=== PATIENT | female | born 1965 | race Caucasian/White ===

== ENCOUNTER 2016-05-14 14:39 | Emergency (ER) | payer OTHER ==
--- NOTE | 2016-05-14 14:52 | ER Document Report ---
ED Medical Screen (RME) - General Stated Complaint: VOMITING,DIARRHEA Notes: Nausea vomiting diarrhea for 24 hours also has postural vertigo I greeted and performed a rapid initial assessment of this patient. Comprehensive ED assessment and evaluation of the patient, analysis of test results and completion of the medical decision making process will be conducted by additional ED providers. - Related Data Allergies/Adverse Reactions: SAGAR Inhibitors [Sagar Inhibitors] Allergy (Unknown, Verified 02/12/12 19:44) Pyzxdxe-Fmw-Yzn Reductase Inhibitor Allergy (Unknown, Verified 02/12/12 19:44) Past Medical History - Past Medical History Cardiac Medical History: Reports: Hx Hypercholesterolemia - no longer being treated, Hx Hypertension - no longer being treated Pulmonary Medical History: Denies: Hx Tuberculosis Endocrine Medical History: Reports: Hx Diabetes Mellitus Type 1 Psychiatric Medical History: Reports: Hx Depression Past Surgical History: Denies: Hx Pacemaker - Immunizations Hx Diphtheria, Pertussis, Tetanus Vaccination: Yes
[2016-05-14] MEDS ORDERED: NORMAL SALINE 1000 ML 2,000 ML IV PRN (14:53)
[2016-05-14] MEDS ORDERED: METOCLOPRAMIDE HCL INJ/PF 10 MG/2 ML SDV IV ONE (15:24)
--- NOTE | 2016-05-14 15:24 | ER Document Report ---
ED GI/ - General Chief Complaint: Nausea/Vomiting/Diarrhea Stated Complaint: VOMITING,DIARRHEA Notes: The patient is a 50-year-old female, past medical history IDDM, hypertension, high cholesterol, presents with 1 day of nausea, vomiting and diarrhea. Her Accu-Chek at home was in the high 300s and she took her sliding scale insulin. A repeat Accu-Chek was 200s. She is having polyuria. She is also having intermittent vertiginous symptoms, feeling like the room is spinning, that started around the same time as her nausea and vomiting. She denies abdominal pain, headache, blurry vision, neck stiffness, focal weakness, ataxia, chest pain, shortness of breath, fevers, hematemesis or hematochezia. TRAVEL OUTSIDE OF THE [place] IN LAST 30 DAYS: No - Related Data Allergies/Adverse Reactions: SAGAR Inhibitors [Sagar Inhibitors] Allergy (Unknown, Verified 05/14/16 14:52) Raewvcm-Nzc-Ehr Reductase Inhibitor Allergy (Unknown, Verified 05/14/16 14:52) Past Medical History - General Information source: Patient - Social History Smoking Status: Current Every Day Smoker Chew tobacco use (# tins/day): No Frequency of alcohol use: None Drug Abuse: None Family History: Reviewed & Not Pertinent Patient has suicidal ideation: No Patient has homicidal ideation: No - Past Medical History Cardiac Medical History: Reports: Hx Hypercholesterolemia - no longer being treated, Hx Hypertension - no longer being treated Pulmonary Medical History: Denies: Hx Tuberculosis Endocrine Medical History: Reports: Hx Diabetes Mellitus Type 1 Renal/ Medical History: Denies: Hx Peritoneal Dialysis Psychiatric Medical History: Reports: Hx Depression Past Surgical History: Denies: Hx Pacemaker - Immunizations Hx Diphtheria, Pertussis, Tetanus Vaccination: Yes Review of Systems - Review of Systems Notes: REVIEW OF SYSTEMS: CONSTITUTIONAL: -fevers, -chills EENT: -eye pain, -difficulty swallowing, -nasal congestion CARDIOVASCULAR:-chest pain, -syncope. RESPIRATORY: -cough, -SOB GASTROINTESTINAL: -abdominal pain, +nausea, +vomiting, +diarrhea GENITOURINARY: -dysuria, -hematuria MUSCULOSKELETAL: -back pain, -neck pain SKIN: -rash or skin lesions. HEMATOLOGIC: -easy bruising or bleeding. LYMPHATIC: -swollen, enlarged glands. NEUROLOGICAL: -altered mental status or loss of consciousness, -headache, + vertigo PSYCHIATRIC: -anxiety, -depression. ALL OTHER SYSTEMS REVIEWED AND NEGATIVE. Physical Exam - Vital signs Vitals: Resp Pulse Ox 15 98 05/14/16 15:41 05/14/16 15:41 Temp 98.0, Pulse 133, RR 26, Pulse Ox98%, BP 91/62 - Notes Notes: PHYSICAL EXAMINATION: GENERAL: Well-appearing, well-nourished and in no acute distress. HEAD: Atraumatic, normocephalic. EYES: Pupils equal round and reactive to light, extraocular movements intact, sclera anicteric, conjunctiva are normal. ENT: nares patent, oropharynx clear without exudates. Dry mucous membranes. NECK: Normal range of motion, supple without lymphadenopathy LUNGS: Tachypnea. Breath sounds clear to auscultation bilaterally and equal. No wheezes rales or rhonchi. HEART: Tachycardic. Normal rhythm. ABDOMEN: Soft, nontender, normoactive bowel sounds. No guarding, no rebound. No masses appreciated. EXTREMITIES: Normal range of motion, no pitting or edema. No cyanosis. NEUROLOGICAL: Cranial nerves grossly intact. Normal speech, normal gait. Normal sensory, motor, and reflex exams. No posterior cerebellar signs. PSYCH: Normal mood, normal affect. SKIN: Warm, Dry, normal turgor, no rashes or lesions noted. Course - Re-evaluation Re-evalutation: Patient's vertiginous symptoms resolved after fluid. No posterior cerebellar signs to suggest basilar insufficiency. Patient initially had elevated anion gap within normal blood sugar. She is not acidotic on VBG. Does not meet criteria for DKA. Patient is tolerating fluids. Abdominal exam is completely soft and she has no nausea. KUB shows possible ileus and radiologist said cannot rule out small bowel obstruction, but patient is not acting clinically like an ileus or small bowel obstruction at this time. Slight leukocytosis most likely from vomiting. No evidence of infection at this time. Offered patient admission, but she would like to go home because she is feeling much better. Repeat BMP shows that the anion gap has resolved. Will discharge home with instructions to stay hydrated and return immediately to the ER if she has any worsening symptoms. - Vital Signs Vital signs: Temp Pulse Resp BP Pulse Ox 101 H 16 101/74 99 05/14/16 20:29 05/14/16 20:29 05/14/16 20:29 05/14/16 20:29 - Laboratory Result Diagrams: 05/14/16 14:55 05/14/16 19:31 Laboratory results interpreted by me: 05/14/16 05/14/16 05/14/16 14:53 14:55 14:55 WBC 11.3 H RBC 5.65 H Hgb 16.5 H Hct 51.5 H Seg Neuts % (Manual) 85 H Lymphocytes % (Manual) 2 L Abs Neuts (Manual) 9.9 H Abs Lymphs (Manual) 0.2 L Anion Gap 21 H BUN 23 H Creatinine 1.28 H Est GFR ( Amer) 54 L Est GFR (Non-Af Amer) 45 L Glucose 138 H POC Glucose 151 H Calcium AST 47 H ALT 66 H Lipase < 10.0 L Urine Protein Urine Glucose (UA) Urine Ketones Urine Blood 05/14/16 05/14/16 05/14/16 16:45 18:58 19:31 WBC RBC Hgb Hct Seg Neuts % (Manual) Lymphocytes % (Manual) Abs Neuts (Manual) Abs Lymphs (Manual) Anion Gap BUN 25 H Creatinine Est GFR ( Amer) Est GFR (Non-Af Amer) Glucose 111 H POC Glucose 115 H Calcium 8.3 L AST ALT Lipase Urine Protein 30 H Urine Glucose (UA) >=500 H Urine Ketones 20 H Urine Blood LARGE H - Diagnostic Test Radiology reviewed: Image reviewed, Reports reviewed - EKG Interpretation by Me EKG shows normal: Sinus rhythm, [place], Intervals, QRS Complexes, ST-T Waves Rate: Tachycardia - 133 Discharge - Discharge Clinical Impression: Hyperglycemia Nausea & vomiting Qualifiers: Vomiting type: unspecified Vomiting Intractability: non-intractable Qualified Code(s): R11.2 - Nausea with vomiting, unspecified Disposition: HOME, SELF-CARE Additional Instructions: HYPERGLYCEMIA (HIGH BLOOD SUGAR): You have an abnormally high blood sugar. Not all high blood sugar requires long-term treatment. High blood sugar can be due to medications, , or the stress of illness. (These cases are "borderline diabetes.") If the doctor feels your high blood sugar might resolve with time, you may not require treatment now. It's very important that you follow through, to see if the blood sugar returns to normal levels. Uncontrolled high blood sugar leads to early heart disease, strokes, nerve damage, eye damage, and kidney damage. Call the physician if there is faintness, excess sleepiness, or very rapid breathing. DIABETES: You have an abnormally high blood sugar, suspicious for diabetes. Not all high blood sugar requires long-term treatment. High blood sugar can be due to medications, , or the stress of illness. (These cases are "borderline diabetes.") If the doctor feels your high blood sugar might get better with time, you may not require treatment now. It's very important that you follow through. Uncontrolled high blood sugar leads to early heart disease, strokes, nerve damage, eye damage, and kidney damage. All diabetics should follow a diet designed to control the blood sugar. Overweight diabetics should exercise regularly and lose weight. If this is not sufficient to control the blood sugar, pills or insulin shots are necessary. Younger people who develop diabetes almost always require insulin daily. Home testing of blood sugars or urine sugar is required. Diabetic teaching is available to help you figure insulin doses and monitor the blood sugar. Call the physician if there is faintness, excess sleepiness, or very rapid breathing. If hypoglycemia (LOW blood sugar) develops, symptoms are shakiness, weakness, sweating, and confusion. In this case, you should eat or drink something with sugar at once. INSULIN: Insulin is a natural hormone that lowers blood sugar. Normal blood sugar prevents complications of diabetes. For most diabetics, insulin is the best way to treat the illness. Be sure you know how to measure the insulin correctly. Insulin is measured in "units." There are three types of insulin: N (NPH or long acting), R (regular or short acting), and L (Lente or very long acting). Be sure you are using the right amount of each type. Insulin must be injected into the fat. You can use the abdomen, upper arms , and thighs. Select a different injection site every time. Wipe the site with alcohol before injecting. When first starting insulin, some adjusting of the insulin dose is necessary. Keep a record of each insulin dose and time of injection, and of the blood sugar and the time you test it. Sometimes insulin can make the blood sugar too low. If you become dizzy, sweaty, shaky, or confused, you may be having a hypoglycemic episode. Immediately use juice or some other sweet food. Call the doctor if the symptoms don't go away. FOLLOW-UP CARE: If you have been referred to a physician for follow-up care, call the physician s office for an appointment as you were instructed or within the next two days. If you experience worsening or a significant change in your symptoms, notify the physician immediately or return to the Emergency Department at any time for re-evaluation. VOMITING: Vomiting (or nausea without vomiting) can be caused by many other different problems. It can mean that something's wrong with the stomach, such as ulcers or inflammation or the intestinal tract, such as appendicitis. But it can also be a symptom of a problem that has nothing to do with the stomach or intestines. Vomiting is common with severe headaches, earaches, tonsillitis, and kidney infections, etc. We see it with pneumonia or heart attacks. Drugs can cause nausea and vomiting. Many abdominal problems cause vomiting; for example, gallstones, kidney stones, pancreatitis, and intestinal obstruction ( blocked bowels). In most cases, curing the vomiting depends on fixing the problem that caused it. For temporary relief, we may use an anti-nausea medicine. For home use, we can prescribe suppositories, chewable pills, pills that dissolve in the mouth, or liquid anti-nausea drugs. If the vomiting seems to be caused by a problem in the stomach, acid-suppressing drugs may be prescribed as well. It's important to avoid dehydration. Sip small amounts of clear liquids ( soft drinks, tea, broth, etc) . Try to take fluids frequently even if you are vomiting to prevent dehydration. Take increasing amounts of fluid and when liquids are being consumed successfully, advance to small amounts of bland food (toast, soups, mashed potatoes, etc.) until you are able to resume a regular diet. Avoid aspirin, tobacco, and alcohol. If the vomiting worsens, if the problem that's making you vomit worsens, or if there's evidence of bleeding in the stomach (such as black, tarry stool, or bloody or black vomit), you should return immediately. Also, return if abdominal pain worsens or becomes localized to one area or you develop high fever. Call your doctor if you aren't improved in 24 hours. DIARRHEA, NON-SPECIFIC: Diarrhea means frequent, watery stools. There are many causes. Any problem that keeps the intestinal tract from absorbing water from the stool can lead to diarrhea. A sudden new diarrhea problem is usually caused by a virus, food sensitivity, toxic bacteria, or drugs. In this case, we expect the problem to go away soon. Testing is done only if you seem seriously ill from the diarrhea. If you have chronic diarrhea, or diarrhea that keeps coming back, we need to find out why. Chronic diarrhea can be due to inflammation of the bowels such as Crohn's disease or ulcerative colitis, food sensitivity such as intolerance to lactose or wheat protein, irritable bowel syndrome, and other problems. If your diarrhea is a significant problem but it's not clear why you have it, we' ll refer you to a specialist for further testing. During an episode of diarrhea, drink small amounts (two to six ounces) of clear liquids (soft drinks, sport drinks, herb teas, broth, etc). Take fluids frequently to prevent dehydration. It's usually not a problem to take mild anti- diarrhea medication such as Kaopectate or Pepto-Bismol. As the diarrhea eases, advance to small amounts of bland food (mashed potato, toast) for 24 hours. Call the physician if blood appears in your vomit or stool, if vomiting lasts longer than 24 hours, if the abdominal pain worsens or becomes localized to one area, if you develop high fever, or if you become lightheaded and weak. VIRAL SYNDROME: The physician has diagnosed a viral infection. Viruses not only cause "colds," but can cause many different symptoms including generalized aching, fever, headache, cough, diarrhea, nausea, vomiting, and fatigue. The treatment, for the most part, is simply relief of symptoms. This means that antibiotics are usually not given. Rest, fluids, pain medications and, occasionally, medication for the specific symptoms that are most bothersome will be prescribed. Use good handwashing to avoid passing the virus to others. Shared toys should be cleaned with disinfectant. Clean the toilets, sinks, and counter surfaces in bathrooms. Launder clothing in hot water. Contact the physician if you develop any new or unusual symptoms such as severe headache, stiff neck, high fever, chest pain, productive cough, or shortness of breath. You should be rechecked if you don't see marked improvement within seven to 10 days. INTRAVENOUS (I V) FLUIDS: As part of your care today, you received intravenous (IV) fluids. IV fluids are administered to patients who are dehydrated or to those who have certain chemical (electrolyte) abnormalities that need correcting. ANTINAUSEA MEDICATION: You have been given a medication to suppress nausea and vomiting. This type of medication can be given as a shot, pill, or suppository. It will usually last for many hours. Pills and shots usually last six to eight hours. For the typical illness, only one or two doses of the medication may be necessary. Mild lightheadedness may occur. This type of medicine can cause drowsiness. Do not drive or operate dangerous machinery while under its influence. Do not mix with alcohol. See your doctor at once if you have muscle spasms or tightness, or uncontrollable motions (particularly of the neck, mouth, or jaw). Persistent vomiting or severe lightheadedness should also be evaluated by the physician. REGLAN (METOCLOPRAMIDE): Reglan has been prescribed. This medicine affects the stomach and intestines. It can be used to treat nausea and vomiting, to prevent reflux of stomach acid up into the esophagus, or to increase the contractions of the stomach and intestines. It is often prescribed for esophagitis, and for paralysis of the stomach in diabetics. Reglan can cause either mild restlessness or drowsiness. You should contact the doctor at once if you become extremely restless, anxious, or cannot sleep, or if you develop uncontrollable motions of the lips, tongue, or jaw. Do not take alcohol with this medicine. Do not drive or operate machinery until you have been taking this medicine long enough to know how it affects you. Call the doctor if you develop abdominal pains, lightheadedness, black stool, or blood in the stool or vomitus. FOLLOW-UP CARE: If you have been referred to a physician for follow-up care, call the physician s office for an appointment as you were instructed or within the next two days. If you experience worsening or a significant change in your symptoms, notify the physician immediately or return to the Emergency Department at any time for re-evaluation.
[2016-05-14 15:27] LABS: HEMATOCRIT 51.5 % (36.0-47.0); HEMOGLOBIN 16.5 g/dL (12.0-15.5); MEAN CORPUSCULAR HEMOGLOBIN 29.2 pg (27.0-33.4); MEAN CORPUSCULAR HGB CONC 32.1 g/dL (32.0-36.0); MEAN CORPUSCULAR VOLUME 91 fl (80-97); RED BLOOD COUNT 5.65 10^6/uL (3.72-5.28); RED CELL DISTRIBUTION WIDTH 13.5 % (11.5-14.0); WHITE BLOOD COUNT 11.3 10^3/uL (4.0-10.5)
[2016-05-14] MEDS: NORMAL SALINE 1000 ML 1,000 ML IV PRN ×2 (15:38→16:35)
[2016-05-14 15:46] LABS: BAND NEUTROPHILS % (MANUAL) 3 % (3-5); BASOPHILS % (MANUAL) 0 % (0-2); EOSINOPHILS % (MANUAL) 0 % (0-6); LYMPHOCYTES % (MANUAL) 2 % (13-45); TOTAL CELLS COUNTED 100
[2016-05-14 15:48] LABS: ALANINE AMINOTRANSFERASE 66 U/L (9-52); ALBUMIN 4.2 g/dL (3.5-5.0); ALKALINE PHOSPHATASE 53 U/L (38-126); ASPARTATE AMINO TRANSFERASE 47 U/L (14-36); BILIRUBIN,TOTAL 0.4 mg/dL (0.2-1.3); BLOOD UREA NITROGEN 23 mg/dL (7-20); CARBON DIOXIDE 23 mmol/L (22-30); CREATININE RESULT 1.28 mg/dL (0.52-1.25); GLUCOSE 138 mg/dL (75-110); LIPASE < 10.0 U/L (23-300); RBC MORPHOLOGY COMMENT NORMO-CYTIC/CHROMIC; TOTAL PROTEIN 7.2 g/dL (6.3-8.2); TOXIC GRANULATION SLIGHT; TOXIC VACUOLATION PRESENT
[2016-05-14 15:55] LABS: CHLORIDE 98 mmol/L (98-107); POTASSIUM 4.2 mmol/L (3.6-5.0); SODIUM 141.9 mmol/L (137-145)
[2016-05-14 16:00] LABS: ANION GAP 21 (5-19)
[2016-05-14] MEDS ORDERED: DEXTROSE 5%-1/2 NORMAL SALINE 1,000 ML IV ONE (16:19)
[2016-05-14 16:48] LABS: VENOUS BLOOD BASE EXCESS -2.9 mmol/L; VENOUS BLOOD PH 7.31 (7.30-7.42)
[2016-05-14 17:12] LABS: APPEARANCE,URINE SLIGHTLY-CLOUDY; BILIRUBIN,URINE NEGATIVE (NEGATIVE); GLUCOSE, URINE >=500 mg/dL (NEGATIVE); KETONES,URINE 20 mg/dL (NEGATIVE); LEUKOCYTE ESTERASE,URINE NEGATIVE (NEGATIVE); NITRITE,URINE NEGATIVE (NEGATIVE); PROTEIN,URINE 30 mg/dL (NEGATIVE); URINE SPECIFIC GRAVITY 1.032; UROBILINOGEN,URINE NEGATIVE mg/dL (<2.0)
--- NOTE | 2016-05-14 18:35 | EKG REPORT ---
SEVERITY:- OTHERWISE NORMAL ECG - SINUS TACHYCARDIA : Confirmed by: Shamika Dominique MD 14-May-2016 18:35:01
[2016-05-14] MEDS ORDERED: NORMAL SALINE 1000 ML 1,000 ML IV ONE (19:15)
[2016-05-14 20:02] LABS: ANION GAP 12 (5-19); BLOOD UREA NITROGEN 25 mg/dL (7-20); CALCIUM 8.3 mg/dL (8.4-10.2); CARBON DIOXIDE 26 mmol/L (22-30); CHLORIDE 101 mmol/L (98-107); CREATININE RESULT 0.91 mg/dL (0.52-1.25); GLUCOSE 111 mg/dL (75-110); POTASSIUM 3.9 mmol/L (3.6-5.0); SODIUM 138.8 mmol/L (137-145)
[2016-05-15 05:12] VITALS: BP 100/65
== END 2016-05-14 21:12 | disposition home or self-care (01) ==
LOC: ER 14:39
DX: E11.65 Type 2 diabetes mellitus with hyperglycemia (principal); R11.2 Nausea with vomiting, unspecified; R19.7 Diarrhea, unspecified; Z79.4 Long term (current) use of insulin; I10 Essential (primary) hypertension; E78.00 Pure hypercholesterolemia, unspecified; F17.210 Nicotine dependence, cigarettes, uncomplicated
CPT/HCPCS: 93005; 99284; 96361; 96374; 36415; 82010; 82962; 83690; 85025; 80048; 80053; 81001; 84484; 82803; 74022; 93010; J2765; J7030

== ENCOUNTER → 2016-12-05 | Outpatient (CLI) | payer OTHER ==
--- NOTE | 2016-12-05 14:31 | RADIOLOGY REPORT (SQ) ---
EXAM DESCRIPTION: CT ABD/PELVIS WITH IV ORAL COMPLETED DATE/TIME: 12/05/2016 1:13 pm REASON FOR STUDY: ABN WEIGHT LOSS (R63.4), ABD PAIN (R10.9) R10.9 UNSPECIFIED ABDOMINAL PAIN R63.4 ABNORMAL WEIGHT LOSS COMPARISON: Abdominal films 05/14/2016 TECHNIQUE: CT scan of the abdomen and pelvis performed using helical scanning technique with dynamic intravenous contrast injection. No oral contrast. Images reviewed with lung, soft tissue, and bone windows. Reconstructed coronal and sagittal MPR images reviewed. Delayed images for evaluation of the urinary system also acquired. All images stored on PACS. All CT scanners at this facility use dose modulation, iterative reconstruction, and/or weight based d osing when appropriate to reduce radiation dose to as low as reasonably achievable (ALARA). [facility]: Dose Right [facility]: CareDose [facility]: Dose Right [facility]: Teradose 4D [facility]: SIPphone CONTRAST TYPE AND DOSE: contrast/concentration: Isovue 370.00 mg/ml; Total Contrast Delivered: 64.0 ml; Total Saline Delivered: 64.0 ml RENAL FUNCTION: Creatinine 1.5 RADIATION DOSE: Up-to-date CT equipment and radiation dose reduction techniques were employed. CTDIv ol: 3.5 - 4.0 mGy. DLP: 386 mGy-cm.. LIMITATIONS: None. FINDINGS: LOWER CHEST: No significant findings. No nodules or infiltrates. LIVER: Normal size. No masses. No dilated ducts. SPLEEN: Normal size. No focal lesions. PANCREAS: No masses. No significant calcifications. No adjacent inflammation or peripancreatic fluid collections. Pancreatic duct not dilated. GALLBLADDER: No identified stones by CT criteria. No inflammatory changes to suggest cholecystitis. ADRENAL GLANDS: No significant masses or asymmetry. RIGHT KIDNEY AND URETER: No solid masses. No significant calcifications. No hydronephrosis or hyd roureter. LEFT KIDNEY AND URETER: No solid masses. No significant calcifications. No hydronephrosis or hydr oureter. AORTA AND VESSELS: No aneurysm. No dissection. Renal arteries, SMA, celiac without stenosis. RETROPERITONEUM: No retroperitoneal adenopathy, hemorrhage or masses. BOWEL AND PERITONEAL CAVITY: No masses or inflammatory changes. No free fluid or peritoneal masses. Large amount of stool throughout the colon. Few colonic diverticuli without CT signs of acute divert iculitis APPENDIX: Normal. PELVIS: No mass. No free fluid. Normal bladder. Normal size female pelvic organs. Incidental 2 cm left ovarian cyst of doubtful significance. ABDOMINAL WALL: No masses. No hernias. BONES: No significant or acute findings. OTHER: No other significant finding. IMPRESSION: Large amount of stool throughout the colon. Otherwise unremarkable study TECHNICAL DOCUMENTATION: JOB ID: [id number] Quality ID # [id number]: Final reports with documentation of one or more dose reduction techniques (e.g., Au tomated exposure control, adjustment of the mA and/or kV according to patient size, use of iterative reconstruction technique) 2010 [employer]- All Rights Reserved
== END ==
LOC: RAD 12:28
PROVIDERS: ATTEND Internal Medicine Gastroenterology
DX: R10.9 Unspecified abdominal pain (principal); R63.4 Abnormal weight loss
CPT/HCPCS: 74177; 82565

== ENCOUNTER 2018-04-08 17:46 | Inpatient (IN) | payer OTHER ==
--- NOTE | 2018-04-08 18:07 | ER Document Report ---
ED Medical Screen (RME) - General Chief Complaint: Headache Stated Complaint: VOMITING Time Seen by Provider: 04/08/18 18:01 TRAVEL OUTSIDE OF THE [place] IN LAST 30 DAYS: No - HPI Notes: 04/08/18 18:06 Type I diabetic elevated blood sugars nausea vomiting headache history of DKA in the past took 20 units of insulin prior to arrival - Related Data Allergies/Adverse Reactions: SAGAR Inhibitors [Sagar Inhibitors] Allergy (Unknown, Verified 04/08/18 17:47) Hwonugc-Cfd-Utl Reductase Inhibitor Allergy (Unknown, Verified 04/08/18 17:47) Past Medical History - Past Medical History Cardiac Medical History: Reports: Hx Hypercholesterolemia - no longer being treated, Hx Hypertension - no longer being treated Pulmonary Medical History: Denies: Hx Tuberculosis Endocrine Medical History: Reports: Hx Diabetes Mellitus Type 1 Renal/ Medical History: Denies: Hx Peritoneal Dialysis Psychiatric Medical History: Reports: Hx Depression Past Surgical History: Denies: Hx Pacemaker - Immunizations Hx Diphtheria, Pertussis, Tetanus Vaccination: Yes Review of Systems - Review of Systems Constitutional: Other Physical Exam - Vital signs Vitals: Temp Pulse Resp 98.4 F 140 H 24 H 04/08/18 17:49 04/08/18 17:49 04/08/18 17:49 - Respiratory Respiratory status: No respiratory distress Chest status: Nontender Breath sounds: Normal Chest palpation: Normal - Cardiovascular Rhythm: Regular Heart sounds: Normal auscultation - Abdominal Inspection: Normal Distension: No distension Course - Vital Signs Vital signs: Temp Pulse Resp BP Pulse Ox 98.4 F 140 H 24 H 04/08/18 17:49 04/08/18 17:49 04/08/18 17:49 Doctor's Discharge - Discharge Referrals: MELCHOR ACOSTA MD [Primary Care Provider] - Follow up as needed
--- NOTE | 2018-04-08 18:25 | RADIOLOGY REPORT (SQ) ---
EXAM DESCRIPTION: CHEST SINGLE VIEW COMPLETED DATE/TIME: 04/08/2018 6:15 pm REASON FOR STUDY: tachy n/v COMPARISON: None. EXAM PARAMETERS: NUMBER OF VIEWS: One view. TECHNIQUE: Single frontal radiographic view of the chest acquired. RADIATION DOSE: NA LIMITATIONS: None. FINDINGS: LUNGS AND PLEURA: No opacities, masses or pneumothorax. No pleural effusion. MEDIASTINUM AND HILAR STRUCTURES: No masses. Contour normal. HEART AND VASCULAR STRUCTURES: Heart normal in size. Normal vasculature. BONES: No acute findings. HARDWARE: None in the chest. OTHER: No other significant finding. IMPRESSION: NO ACUTE RADIOGRAPHIC FINDING IN THE CHEST. TECHNICAL DOCUMENTATION: JOB ID: [id number] [employer]- All Rights Reserved Reading location - IP/workstation name: [email or web address]
[2018-04-08] MEDS: NORMAL SALINE 1000 ML 1,000 ML IV PRN ×2 (18:27→18:28)
--- NOTE | 2018-04-08 18:31 | RADIOLOGY REPORT (SQ) ---
EXAM DESCRIPTION: CT HEAD WITHOUT COMPLETED DATE/TIME: 04/08/2018 6:22 pm REASON FOR STUDY: pain COMPARISON: None. TECHNIQUE: Axial images acquired through the brain without intravenous contrast. Images reviewed wi th bone, brain and subdural windows. Additional sagittal and coronal reconstructions were generated. Images stored on PACS. All CT scanners at this facility use dose modulation, iterative reconstruction, and/or weight based d osing when appropriate to reduce radiation dose to as low as reasonably achievable (ALARA). [facility]: Dose Right [facility]: CareDose [facility]: Dose Right [facility]: Teradose 4D [facility]: MoPals RADIATION DOSE: CT Rad equipment meets quality standard of care and radiation dose reduction techniq ues were employed. CTDIvol: 53.2 mGy. DLP: 937 mGy-cm. mGy. LIMITATIONS: None. FINDINGS: VENTRICLES: Normal size and contour. CEREBRUM: No masses. No hemorrhage. No midline shift. No evidence for acute infarction. Normal gra y/white matter differentiation. No areas of low density in the white matter. CEREBELLUM: No masses. No hemorrhage. No alteration of density. No evidence for acute infarction. EXTRAAXIAL SPACES: No fluid collections. No masses. ORBITS AND GLOBE: No intra- or extraconal masses. Normal contour of globe without masses. CALVARIUM: No fracture. PARANASAL SINUSES: There are secretions within the bilateral maxillary sinuses. SOFT TISSUES: No mass or hematoma. OTHER: No other significant finding. IMPRESSION: 1. No acute intracranial pathology. No noncontrast CT findings to explain pain. 2. Bilateral maxillary sinus disease. EVIDENCE OF ACUTE STROKE: NO. COMMENT: Quality ID # [id number]: Final reports with documentation of one or more dose reduction techniques (e.g., Automated exposure control, adjustment of the mA and/or kV according to patient size, use of iterative reconstruction technique) TECHNICAL DOCUMENTATION: JOB ID: [id number] [employer] website- All Rights Reserved Reading location - IP/workstation name: [email or web address]
[2018-04-08 18:44] LABS: VENOUS BLOOD BASE EXCESS -24.1 mmol/L; VENOUS BLOOD HCO3 8.9 mmol/L (20-32); VENOUS BLOOD PCO2 45.4 mmHg (35-63)
[2018-04-08 18:45] LABS: HEMATOCRIT 54.2 % (36.0-47.0); HEMOGLOBIN 16.6 g/dL (12.0-15.5); MEAN CORPUSCULAR HEMOGLOBIN 30.4 pg (27.0-33.4); MEAN CORPUSCULAR HGB CONC 30.7 g/dL (32.0-36.0); MEAN CORPUSCULAR VOLUME 99 fl (80-97); PLATELET COUNT 279 10^3/uL (150-450); RED BLOOD COUNT 5.47 10^6/uL (3.72-5.28); RED CELL DISTRIBUTION WIDTH 14.7 % (11.5-14.0)
[2018-04-08 18:46] LABS: VENOUS BLOOD PH 6.91 (7.30-7.42)
[2018-04-08] MEDS ORDERED: DEXTROSE 5%-WATER 1000 ML 1,000 ML with SODIUM BICARBONATE 150 MEQ IV PRN ×2 (18:46)
[2018-04-08 18:48] LABS: APPEARANCE,URINE CLEAR; BILIRUBIN,URINE NEGATIVE (NEGATIVE); COLOR,URINE STRAW; GLUCOSE, URINE >=500 mg/dL (NEGATIVE); KETONES,URINE 80 mg/dL (NEGATIVE); LEUKOCYTE ESTERASE,URINE NEGATIVE (NEGATIVE); NITRITE,URINE NEGATIVE (NEGATIVE); PROTEIN,URINE 100 mg/dL (NEGATIVE); URINE SPECIFIC GRAVITY 1.022; UROBILINOGEN,URINE NEGATIVE mg/dL (<2.0)
--- NOTE | 2018-04-08 18:55 | ER Document Report ---
ED Blood Sugar Problem - General Chief Complaint: Headache Stated Complaint: VOMITING Time Seen by Provider: 04/08/18 18:01 Mode of Arrival: Ambulatory Information source: Patient Notes: Patient is a 52-year-old female with a history of type 1 diabetes controlled on multiple medications who presents with 3 days of headache associated with nausea and multiple episodes of nonbloody and nonbilious emesis. Patient reports no changes in her medications, however she has been unable to check her fingersticks given she is out of the strips for her meter. Patient has history of DKA in the past and reports this is similar but not as bad as well episode. She denies preceding fevers or chills, no confusion or disorientation. TRAVEL OUTSIDE OF THE [place] IN LAST 30 DAYS: No - HPI Onset: Other - 3 days ago Quality of pain: No pain Severity: Moderate Pain Level: 1 Insulin taken: Yes Glucose taken: No Associated symptoms: Dry mucous membranes, Increased thirst, Frequent urination , Nausea, Vomiting, Weakness Similar symptoms previously: Yes Recently seen / treated by doctor: Yes - Related Data Allergies/Adverse Reactions: SAGAR Inhibitors [Sagar Inhibitors] Allergy (Unknown, Verified 04/08/18 21:17) Bhjkrmw-Ekd-Xoy Reductase Inhibitor Allergy (Unknown, Verified 04/08/18 21:17) Past Medical History - General Information source: Patient, Relative - Social History Smoking Status: Current Every Day Smoker Chew tobacco use (# tins/day): No Smoking Education Provided: No Frequency of alcohol use: None Drug Abuse: None Lives with: Alone Family History: Reviewed & Not Pertinent Patient has suicidal ideation: No Patient has homicidal ideation: No - Past Medical History Cardiac Medical History: Reports: Hx Hypercholesterolemia - no longer being treated, Hx Hypertension - no longer being treated Pulmonary Medical History: Reports: None Denies: Hx Tuberculosis EENT Medical History: Reports: None Neurological Medical History: Reports: None Endocrine Medical History: Reports: Hx Diabetes Mellitus Type 1 Renal/ Medical History: Reports: None. Denies: Hx Peritoneal Dialysis Malignancy Medical History: Reports: None GI Medical History: Reports: None Musculoskeletal Medical History: Reports None Skin Medical History: Reports None Psychiatric Medical History: Reports: Hx Depression Traumatic Medical History: Reports: None Infectious Medical History: Reports: None Surgical Hx: Negative Past Surgical History: Denies: Hx Pacemaker - Immunizations Hx Diphtheria, Pertussis, Tetanus Vaccination: Yes Review of Systems - Review of Systems -: Yes ROS unobtainable due to patient's medical condition Constitutional: See HPI, Malaise, Weakness EENT: No symptoms reported Cardiovascular: No symptoms reported Respiratory: No symptoms reported Gastrointestinal: Abdominal pain, Nausea, Vomiting, Constipation. denies: Blood in vomit, Black stools, Rectal bleeding Genitourinary: No symptoms reported Female Genitourinary: No symptoms reported Musculoskeletal: No symptoms reported Skin: No symptoms reported Hematologic/Lymphatic: No symptoms reported Neurological/Psychological: No symptoms reported -: Yes All other systems reviewed and negative Physical Exam - Vital signs Vitals: Temp Pulse Resp 98.4 F 140 H 24 H 04/08/18 17:49 04/08/18 17:49 04/08/18 17:49 Interpretation: Normal - General General appearance: Alert, Other - Sick appearing In distress: Mild - HEENT Head: Normocephalic, Atraumatic Eyes: Normal Pupils: PERRL - Respiratory Respiratory status: No respiratory distress Chest status: Nontender Breath sounds: Normal Chest palpation: Normal - Cardiovascular Rhythm: Tachycardia Heart sounds: Normal auscultation Murmur: No Pulses: Normal: Radial, Carotid Normal capillary refill: Yes - Abdominal Inspection: Normal Distension: No distension Bowel sounds: Normal Tenderness: Tender - Epigastric Organomegaly: No organomegaly - Rectal Tenderness: No - Deferred - Genitourinary Notes: Deferred - Back Back: Normal, Nontender - Extremities General upper extremity: Normal inspection, Nontender, Normal color, Normal ROM , Normal temperature General lower extremity: Normal inspection, Nontender, Normal color, Normal ROM , Normal temperature, Normal weight bearing. No: Tiara's sign - Neurological Neuro grossly intact: Yes Cognition: Normal Orientation: AAOx4 [place] Coma Scale Eye Opening: Spontaneous [place] Coma Scale Verbal: Oriented [place] Coma Scale Motor: Obeys Commands [place] Coma Scale Total: 15 Speech: Normal Motor strength normal: LUE, RUE, LLE, RLE Sensory: Normal - Psychological Associated symptoms: Normal affect, Normal mood - Skin Skin Temperature: Warm Skin Moisture: Dry Skin Color: Normal Course - Re-evaluation Re-evalutation: 04/08/18 20:23 Patient most likely has DKA given initial pH less than 7. Will await laboratory data, start copious IV fluids with insulin and bicarbonate drip, and admit to the hospital. 04/08/18 23:00 Patient has clear evidence of DKA, potassium is normal, there are no EKG changes. She is admitted to the hospitalist. - Vital Signs Vital signs: Temp Pulse Resp BP Pulse Ox 98.6 F 140 H 12 119/62 100 04/08/18 22:24 04/08/18 17:49 04/08/18 22:00 04/08/18 22:00 04/08/18 22:00 - Laboratory Result Diagrams: 04/08/18 18:10 04/08/18 18:10 Laboratory results interpreted by me: 04/08/18 04/08/18 04/08/18 18:10 18:10 18:10 WBC 32.9 H* RBC 5.47 H Hgb 16.6 H Hct 54.2 H MCV 99 H MCHC 30.7 L RDW 14.7 H Seg Neuts % (Manual) 81 H Lymphocytes % (Manual) 9 L Abs Neuts (Manual) 27.6 H Abs Monocytes (Manual) 2.3 H VBG pH 6.91 L* VBG HCO3 8.9 L Carbon Dioxide 8 L* Anion Gap 31 H BUN 32 H Est GFR ( Amer) 59 L Est GFR (Non-Af Amer) 49 L Glucose 594 H* POC Glucose Total Protein 9.2 H Albumin 5.2 H Urine Protein Urine Glucose (UA) Urine Ketones Urine Blood 04/08/18 04/08/18 04/08/18 18:10 20:42 22:21 WBC RBC Hgb Hct MCV MCHC RDW Seg Neuts % (Manual) Lymphocytes % (Manual) Abs Neuts (Manual) Abs Monocytes (Manual) VBG pH VBG HCO3 Carbon Dioxide Anion Gap BUN Est GFR ( Amer) Est GFR (Non-Af Amer) Glucose POC Glucose 377 H 285 H Total Protein Albumin Urine Protein 100 H Urine Glucose (UA) >=500 H Urine Ketones 80 H Urine Blood LARGE H - Diagnostic Test Radiology reviewed: Reports reviewed - EKG Interpretation by Me EKG shows normal: Sinus rhythm Rate: Tachycardia Rhythm: NSR Chadron/QRS: No: LBBB P Waves: No: FRAKN, LAE, Absent, AV Dissociation, Other Heart block present: No: 1st Degree, Mobitz 1, Mobitz 2, CHB (3rd degree block) When compared to previous EKG there are: No significant change - Consults Dr. Fletcher Time consulted: 23:02 - will admit to the ICU Consulted provider: will come to ER Critical Care Note - Critical Care Note Total time excluding time spent on procedures (mins): 120 Comments: Patient was seen and evaluated solely by myself as the only provider while in the emergency department. I interpreted blood work, blood gas, urinalysis, initiated IV insulin with insulin drip, as well as IV fluid hydration and admission to the hospital. Discharge - Discharge Clinical Impression: DKA (diabetic ketoacidoses), Headache, Nausea & vomiting Condition: Stable Disposition: ADMITTED INPATIENT Admitting Provider: Hospitalist Unit Admitted: ICU Referrals: MELCHOR ACOSTA MD [ACTIVE STAFF] - Follow up as needed
[2018-04-08 18:58] LABS: ALANINE AMINOTRANSFERASE 24 U/L (9-52); ALBUMIN 5.2 g/dL (3.5-5.0); ALKALINE PHOSPHATASE 108 U/L (38-126); ASPARTATE AMINO TRANSFERASE 28 U/L (14-36); BILIRUBIN,DIRECT 0.4 mg/dL (0.0-0.4); BILIRUBIN,TOTAL 0.5 mg/dL (0.2-1.3); BLOOD UREA NITROGEN 32 mg/dL (7-20); CALCIUM 10.2 mg/dL (8.4-10.2); LIPASE 44.3 U/L (23-300); POTASSIUM 4.8 mmol/L (3.6-5.0); TOTAL PROTEIN 9.2 g/dL (6.3-8.2)
[2018-04-08 19:03] LABS: CHLORIDE 101 mmol/L (98-107); SODIUM 139.9 mmol/L (137-145)
[2018-04-08 19:05] LABS: ABSOLUTE MONOCYTES # (MANUAL) 2.3 10^3/uL (0.1-1.4); ABSOLUTE NEUTROPHILS# (MANUAL) 27.6 10^3/uL (1.7-8.2); ANION GAP 31 (5-19); BAND NEUTROPHILS % (MANUAL) 3 % (3-5); BASOPHILS % (MANUAL) 0 % (0-2); EOSINOPHILS % (MANUAL) 0 % (0-6); LYMPHOCYTES % (MANUAL) 9 % (13-45); MONOCYTES % (MANUAL) 7 % (3-13); SEGMENTED NEUTROPHILS % (MAN) 81 % (42-78); TOTAL CELLS COUNTED 100
[2018-04-08 19:06] LABS: ANISOCYTOSIS SLIGHT; PLATELET COMMENT ADEQUATE; TOXIC GRANULATION SLIGHT
[2018-04-08 19:07] LABS: WHITE BLOOD COUNT 32.9 10^3/uL (4.0-10.5)
[2018-04-08 19:08] LABS: CARBON DIOXIDE 8 mmol/L (22-30); GLUCOSE 594 mg/dL (75-110)
[2018-04-08] MEDS ORDERED: INSULIN REG, HUMAN 100 UNIT/ML 3 ML VIAL (PYX) IV ONE (20:24)
[2018-04-08] MEDS ORDERED: NORMAL SALINE 1000 ML 1,000 ML IV ONE (20:25)
[2018-04-08] MEDS ORDERED: DEXTROSE 40% GEL 15 GM TUBE PO PRN ×4 (20:26→22:50)
[2018-04-08] MEDS ORDERED: DEXTROSE 50%-WATER 25 GM/50 ML DISP.SYRIN IV PRN ×4 (20:26→22:50)
[2018-04-08] MEDS ORDERED: GLUCAGON,HUMAN RECOMB 1 MG INJ IM PRN ×2 (20:26→22:50)
[2018-04-08] MEDS ORDERED: NORMAL SALINE 100 ML with INSULIN REGULAR, HUMAN 100 UNIT IV PRN ×2 (20:26)
[2018-04-08] MEDS ORDERED: DEXTROSE 5%-1/2 NORMAL SALINE 1,000 ML IV PRN (20:26)
[2018-04-08] MEDS ORDERED: INSULIN REG, HUMAN 100 UNIT/ML 3 ML VIAL (PYX) ONE (20:55)
[2018-04-08] MEDS ORDERED: POTASSI CL 20 MEQ/D5-1/2NS 1L 1,000 ML IV PRN (21:07)
[2018-04-08] MEDS ORDERED: MAG HYDROX/AL HYDROX/SIMETH SUSP 30 ML UDCUP PO PRN (22:50)
[2018-04-08] MEDS ORDERED: ACETAMINOPHEN 325 MG TABLET PO PRN (22:50)
[2018-04-08] MEDS: POTASSI CL 20 MEQ/D5-1/2NS 1L 1,000 ML IV PRN (23:06)
[2018-04-08] MEDS: NORMAL SALINE 100 ML with INSULIN REGULAR, HUMAN 100 UNIT IV PRN ×2 (23:07)
[2018-04-08 23:17] LABS: ANION GAP 13 (5-19); BLOOD UREA NITROGEN 25 mg/dL (7-20); CALCIUM 8.1 mg/dL (8.4-10.2); CARBON DIOXIDE 15 mmol/L (22-30); CHLORIDE 112 mmol/L (98-107); GLUCOSE 335 mg/dL (75-110); POTASSIUM 4.8 mmol/L (3.6-5.0); SODIUM 140.4 mmol/L (137-145)
[2018-04-08 23:27] LABS: URINE AMPHETAMINES SCREEN NEGATIVE; URINE BARBITURATES SCREEN NEGATIVE; URINE BENZODIAZEPINES SCREEN NEGATIVE; URINE COCAINE SCREEN NEGATIVE; URINE MARIJUANA (THC) SCREEN NEGATIVE; URINE METHADONE SCREEN NEGATIVE; URINE PHENCYCLIDINE SCREEN NEGATIVE
[2018-04-09] MEDS: POTASSI CL 20 MEQ/D5-1/2NS 1L 1,000 ML IV PRN ×2 (02:37→08:21)
[2018-04-09 02:41] LABS: ANION GAP 13 (5-19); BLOOD UREA NITROGEN 23 mg/dL (7-20); CARBON DIOXIDE 18 mmol/L (22-30); CHLORIDE 110 mmol/L (98-107); GLUCOSE 322 mg/dL (75-110); POTASSIUM 4.2 mmol/L (3.6-5.0); SODIUM 140.5 mmol/L (137-145)
[2018-04-09] MEDS ORDERED: NORMAL SALINE 1000 ML 1,000 ML IV ONE (04:45)
[2018-04-09] MEDS ORDERED: HEPARIN SOD (PORCINE) 5,000 UNIT/ML 1 ML SYRINGE SUBCUT SCH (06:00)
[2018-04-09] MEDS ORDERED: LACTULOSE SYRUP 20 GM/30 ML UDCUP PO ONE (06:36)
--- NOTE | 2018-04-09 06:36 | PDOC H&P ---
History of Present Illness Admission Date/PCP: 04/08/18 23:13 Patient complains of: Abdominal pain and nausea History of Present Illness: CANDACE BATISTA is a 52 year old female with a history of diabetes, hypertension, dyslipidemia, tobacco, marijuana use and depression. Patient presents with 72 hours of polyuria polydipsia, hyperglycemia developing abdominal pain and nausea. Recognizing the symptoms from previous episodes of diabetic ketoacidosis she seeks evaluation in the emergency room. She is found to have severe metabolic acidosis with a pH of 6.9. She started on IV bicarbonate, insulin and referred to the hospitalist for admission. Patient denies recent illness but admits difficulty with obtaining insulin regiment. She is unaware of her current dosing simply stating she takes a lot of insulin. She denies chest pain or palpitations but is tachypneic. Past Medical History Cardiac Medical History: Reports: Hyperlipidema - no longer being treated, Hypertension - no longer being treated Pulmonary Medical History: Reports: None Denies: Tuberculosis EENT Medical History: Reports: None Neurological Medical History: Reports: None Endocrine Medical History: Reports: Diabetes Mellitus Type 1 Renal/ Medical History: Reports: None Malignancy Medical History: Reports: None GI Medical History: Reports: None Musculoskeltal Medical History: Reports: None Skin Medical History: Reports: None Psychiatric Medical History: Reports: Depression Traumatic Medical History: Reports: None Hematology: Reports: Anemia Infectious Medical History: Reports: None Past Surgical History Past Surgical History: Denies: Pacemaker Social History Information Source: Patient, [facility] Records Lives with: Alone Smoking Status: Current Every Day Smoker Cigarettes Packs Per Day: 0.5 Number of Years Smokin Frequency of Alcohol Use: Rare Hx Recreational Drug Use: Yes - as a teenage Drugs: Marijuana Hx Prescription Drug Abuse: No - Advance Directive Resuscitation Status: Full Code Family History Family History: Hyperlipidemia, Hypertension Parental Family History Reviewed: Yes Children Family History Reviewed: Yes Sibling(s) Family History Reviewed.: Yes Medication/Allergy Home Medications: Citalopram Hydrobromide [Celexa 20 Mg Tablet] 20 mg PO DAILY 02/12/12 Insulin Aspart [Novolog Insulin 100 Unit/1 ml 10 ml] 15 units SUBCUT AC Dulaglutide [Trulicity] SQ 04/09/18 Empagliflozin [Jardiance] DAILY 04/09/18 Insulin Glargine,Hum.rec.anlog [Touniallo Solostar] 60 unit SQ QHS 04/09/18 Losartan/Hydrochlorothiazide [Losartan-Hctz 50-12.5 mg Tab] DAILY 04/09/18 Rosuvastatin Calcium [Crestor 5 mg Tablet] 04/09/18 Allergies/Adverse Reactions: SAGAR Inhibitors [Sagar Inhibitors] Allergy (Unknown, Verified 04/08/18 21:17) Upoange-Iiy-Ozr Reductase Inhibitor Allergy (Unknown, Verified 04/08/18 21:17) Review of Systems Constitutional: PRESENT: as per HPI, fatigue. ABSENT: fever(s), headache(s), night sweats, weakness Eyes: ABSENT: visual disturbances Ears: ABSENT: hearing changes Cardiovascular: ABSENT: chest pain, dyspnea on exertion, edema, orthropnea, palpitations Respiratory: PRESENT: as per HPI. ABSENT: dyspnea, hemoptysis Gastrointestinal: PRESENT: as per HPI, abdominal pain, constipation - 1 bowel movement q. 14 days. ABSENT: bloating, coffee ground emesis Genitourinary: ABSENT: dysuria, hematuria Musculoskeletal: ABSENT: joint swelling Integumentary: ABSENT: rash, wounds Neurological: ABSENT: abnormal gait, abnormal speech, confusion, dizziness, focal weakness, syncope Psychiatric: ABSENT: anxiety, depression, homidical ideation, suicidal ideation Endocrine: ABSENT: cold intolerance, heat intolerance, polydipsia, polyuria Hematologic/Lymphatic: ABSENT: easy bleeding, easy bruising Physical Exam Vital Signs: Temp Pulse Resp BP Pulse Ox 97.4 F 91 16 102/55 L 99 04/09/18 05:32 04/09/18 04:00 04/09/18 04:00 04/09/18 02:32 04/09/18 04:00 Intake & Output 04/07/18 04/08/18 04/09/18 11:59 11:59 11:59 Intake Total 746 Output Total 0 Balance 746 Weight 62.5 kg General appearance: PRESENT: cooperative, mild distress, thin. ABSENT: disheveled Head exam: PRESENT: atraumatic, normocephalic Eye exam: PRESENT: conjunctiva pink, EOMI, PERRLA. ABSENT: scleral icterus Ear exam: PRESENT: normal external ear exam Mouth exam: PRESENT: moist, tongue midline Neck exam: ABSENT: carotid bruit, JVD, lymphadenopathy, thyromegaly Respiratory exam: PRESENT: clear to auscultation priti, tachypnea. ABSENT: rales , rhonchi, wheezes Cardiovascular exam: PRESENT: tachycardia. ABSENT: diastolic murmur, rubs, systolic murmur Pulses: PRESENT: normal dorsalis pedis pul Vascular exam: ABSENT: normal capillary refill, pallor, other GI/Abdominal exam: PRESENT: hypoactive bowel sounds, normal bowel sounds, soft. ABSENT: distended, guarding, mass, organolmegaly, rebound, tenderness Rectal exam: PRESENT: deferred Extremities exam: PRESENT: full ROM. ABSENT: calf tenderness, clubbing, pedal edema Neurological exam: PRESENT: alert, awake, oriented to person, oriented to place , oriented to time, oriented to situation, CN II-XII grossly intact. ABSENT: motor sensory deficit Psychiatric exam: PRESENT: appropriate affect, normal mood. ABSENT: homicidal ideation, suicidal ideation Skin exam: PRESENT: dry, intact, warm. ABSENT: cyanosis, rash Results Laboratory Results: 04/09/18 02:12 Sodium 140.5 Potassium 4.2 Chloride 110 H Carbon Dioxide 18 L Anion Gap 13 BUN 23 H Creatinine 0.45 L Est GFR ( Amer) > 60 Est GFR (Non-Af Amer) > 60 Glucose 322 H Calcium 8.0 L Impressions: Head CT 04/08/18 18:02 IMPRESSION: 1. No acute intracranial pathology. No noncontrast CT findings to explain pain. 2. Bilateral maxillary sinus disease. EVIDENCE OF ACUTE STROKE: NO. Chest X-Ray 04/08/18 18:06 IMPRESSION: NO ACUTE RADIOGRAPHIC FINDING IN THE CHEST. Assessment & Plan - Diagnosis (1) DKA (diabetic ketoacidoses) Is this a current diagnosis for this admission?: Yes Plan: Diabetic ketoacidosis patient has had some degree of polyuria polydipsia with nausea and uncontrolled hyperglycemia with supporting labs. Patient will receive IV fluids IV insulin serial chemistries every 6 hours for evaluation for electrolyte repletion. Continued evaluation for underlying cause if not found Patient will require diabetic education and consideration of mental health evaluation. (2) Tobacco abuse Is this a current diagnosis for this admission?: Yes Plan: Tobacco Dependence patient received tobacco cessation counseling and offered nicotine replacement options (3) Constipation Is this a current diagnosis for this admission?: Yes Plan: Lactulose and Metamucil (4) Nausea & vomiting Is this a current diagnosis for this admission?: Yes Plan: Secondary to #1, symptomatic management - Time Time Spent: 50 to 70 Minutes - Inpatient Certification Medical Necessity: Need Close Monitoring Due to Risk of Patient Decompensation
[2018-04-09 06:41] LABS: ABSOLUTE BASOPHILS # (AUTO) 0.1 10^3/uL (0.0-0.2); ABSOLUTE EOSINOPHILS # (AUTO) 0.1 10^3/uL (0.0-0.6); ABSOLUTE LYMPHOCYTES (AUTO) 2.8 10^3/uL (0.5-4.7); ABSOLUTE MONOCYTES (AUTO) 1.3 10^3/uL (0.1-1.4); ABSOLUTE NEUT (AUTO) 10.4 10^3/uL (1.7-8.2); BASOPHILS % (AUTO) 0.7 % (0-2); EOSINOPHILS % (AUTO) 0.6 % (0-6); HEMATOCRIT 35.6 % (36.0-47.0); MEAN CORPUSCULAR HEMOGLOBIN 30.1 pg (27.0-33.4); MEAN CORPUSCULAR HGB CONC 33.6 g/dL (32.0-36.0); MONOCYTES % (AUTO) 8.9 % (3-13); PLATELET COUNT 153 10^3/uL (150-450); RED BLOOD COUNT 3.98 10^6/uL (3.72-5.28); RED CELL DISTRIBUTION WIDTH 13.4 % (11.5-14.0); SEGMENTED NEUTROPHILS % (AUTO) 70.8 % (42-78); TOTAL CELLS COUNTED % (AUTO) 100 %; WHITE BLOOD COUNT 14.7 10^3/uL (4.0-10.5)
[2018-04-09 06:47] LABS: MEAN CORPUSCULAR VOLUME 89 fl (80-97)
[2018-04-09 06:58] LABS: ANION GAP 9 (5-19); BLOOD UREA NITROGEN 20 mg/dL (7-20); CALCIUM 7.6 mg/dL (8.4-10.2); CARBON DIOXIDE 20 mmol/L (22-30); CHLORIDE 112 mmol/L (98-107); GLUCOSE 192 mg/dL (75-110); POTASSIUM 3.5 mmol/L (3.6-5.0)
[2018-04-09] MEDS: NORMAL SALINE 100 ML with INSULIN REGULAR, HUMAN 100 UNIT IV PRN ×2 (11:31)
[2018-04-09] MEDS: DOCUSATE SODIUM 100 MG CAPSULE PO SCH ×2 (11:32→17:38)
[2018-04-09] MEDS: CITALOPRAM HYDROBROMIDE 20 MG TABLET PO SCH (11:32)
[2018-04-09] MEDS: PSYLLIUM SEED-SF 5.85 GM PACKET PO SCH (11:33)
[2018-04-09] MEDS ORDERED: GLUCAGON,HUMAN RECOMB 1 MG INJ IM PRN (11:34)
[2018-04-09] MEDS ORDERED: DEXTROSE 50%-WATER 25 GM/50 ML DISP.SYRIN IV PRN ×2 (11:34)
[2018-04-09] MEDS ORDERED: DEXTROSE 40% GEL 15 GM TUBE PO PRN ×2 (11:34)
[2018-04-09 11:39] LABS: ANION GAP 9 (5-19); BLOOD UREA NITROGEN 19 mg/dL (7-20); CALCIUM 7.8 mg/dL (8.4-10.2); CARBON DIOXIDE 20 mmol/L (22-30); CHLORIDE 112 mmol/L (98-107); GLUCOSE 137 mg/dL (75-110); POTASSIUM 4.2 mmol/L (3.6-5.0); SODIUM 141.2 mmol/L (137-145)
--- NOTE | 2018-04-09 13:12 | EKG REPORT ---
SEVERITY:- BORDERLINE ECG - SINUS TACHYCARDIA PROBABLE LEFT ATRIAL ABNORMALITY BORDERLINE PROLONGED QT INTERVAL : Confirmed by: Shamika Dominique MD 09-Apr-2018 13:11:57
[2018-04-09 14:46] LABS: PATH REVIEW PATHOLOGIST REVIEWED
[2018-04-09 14:47] LABS: ANION GAP 9 (5-19); BLOOD UREA NITROGEN 17 mg/dL (7-20); CALCIUM 7.3 mg/dL (8.4-10.2); CARBON DIOXIDE 19 mmol/L (22-30); CHLORIDE 112 mmol/L (98-107); GLUCOSE 103 mg/dL (75-110); POTASSIUM 3.7 mmol/L (3.6-5.0); SODIUM 139.5 mmol/L (137-145)
[2018-04-09] MEDS: INSULIN LISPRO 100 UNIT/ML 3 ML VIAL SUBCUT PRN ×2 (17:38→20:58)
--- NOTE | 2018-04-09 18:37 | PDOC PROGRESS REPORT ---
Subjective Progress Note for:: 04/09/18 Subjective:: No adverse events overnight. Her only new complaint is that she wants to be able to eat whatever she wants and I told her she has to be on a diabetic diet. Overall she is feeling better. Reason For Visit: DKA Physical Exam Vital Signs: Temp Pulse Resp BP Pulse Ox 98.5 F 90 16 101/58 L 98 04/09/18 16:00 04/09/18 16:00 04/09/18 16:22 04/09/18 16:22 04/09/18 16:00 Intake & Output 04/08/18 04/09/18 04/10/18 06:59 06:59 06:59 Intake Total 758 2862 Output Total 0 Balance 758 2862 Weight 62.5 kg General appearance: PRESENT: no acute distress, cooperative, disheveled Respiratory exam: PRESENT: clear to auscultation priti, symmetrical, unlabored. ABSENT: accessory muscle use, rales, rhonchi, wheezes Cardiovascular exam: PRESENT: RRR, +S1, +S2 Vascular exam: PRESENT: normal capillary refill GI/Abdominal exam: PRESENT: normal bowel sounds, soft. ABSENT: distended, guarding, rebound, tenderness Extremities exam: ABSENT: clubbing, pedal edema Musculoskeletal exam: PRESENT: normal inspection. ABSENT: deformity Neurological exam: PRESENT: alert, awake, oriented to person, oriented to place , oriented to time Psychiatric exam: PRESENT: appropriate affect, normal mood Skin exam: PRESENT: dry, warm Results Laboratory Results: 04/09/18 05:54 04/09/18 04/09/18 04/09/18 02:12 05:54 05:54 WBC 14.7 H RBC 3.98 Hgb 12.0 D Hct 35.6 L MCV 89 D MCH 30.1 MCHC 33.6 RDW 13.4 Plt Count 153 Seg Neutrophils % 70.8 Lymphocytes % 19.0 Monocytes % 8.9 Eosinophils % 0.6 Basophils % 0.7 Absolute Neutrophils 10.4 H Absolute Lymphocytes 2.8 Absolute Monocytes 1.3 Absolute Eosinophils 0.1 Absolute Basophils 0.1 Sodium 140.5 141.0 Potassium 4.2 3.5 L Chloride 110 H 112 H Carbon Dioxide 18 L 20 L Anion Gap 13 9 BUN 23 H 20 Creatinine 0.45 L 0.46 L Est GFR ( Amer) > 60 > 60 Est GFR (Non-Af Amer) > 60 > 60 Glucose 322 H 192 H Calcium 8.0 L 7.6 L 04/09/18 04/09/18 10:32 14:01 WBC RBC Hgb Hct MCV MCH MCHC RDW Plt Count Seg Neutrophils % Lymphocytes % Monocytes % Eosinophils % Basophils % Absolute Neutrophils Absolute Lymphocytes Absolute Monocytes Absolute Eosinophils Absolute Basophils Sodium 141.2 139.5 Potassium 4.2 3.7 Chloride 112 H 112 H Carbon Dioxide 20 L 19 L Anion Gap 9 9 BUN 19 17 Creatinine 0.46 L 0.44 L Est GFR ( Amer) > 60 > 60 Est GFR (Non-Af Amer) > 60 > 60 Glucose 137 H 103 Calcium 7.8 L 7.3 L Impressions: Head CT 04/08/18 18:02 IMPRESSION: 1. No acute intracranial pathology. No noncontrast CT findings to explain pain. 2. Bilateral maxillary sinus disease. EVIDENCE OF ACUTE STROKE: NO. Chest X-Ray 04/08/18 18:06 IMPRESSION: NO ACUTE RADIOGRAPHIC FINDING IN THE CHEST. Assessment & Plan - Diagnosis (1) DKA (diabetic ketoacidoses) Qualifiers: Diabetes mellitus type: type 2 Diabetes mellitus complication detail: without coma Qualified Code(s): E11.10 - Type 2 diabetes mellitus with ketoacidosis without coma Is this a current diagnosis for this admission?: Yes Plan: She is out of DKA now. We are going to take her off the insulin drip and put her on a carbohydrate controlled diet and a sliding scale. Will reintroduce her long-acting insulin on her usual schedule. We will monitor her response. If she does well we can probably discharge her home in the morning. - Time Time Spent with patient: 25-34 minutes
[2018-04-09 18:42] LABS: ANION GAP 14 (5-19); BLOOD UREA NITROGEN 18 mg/dL (7-20); CALCIUM 7.8 mg/dL (8.4-10.2); CARBON DIOXIDE 16 mmol/L (22-30); CHLORIDE 107 mmol/L (98-107); SODIUM 136.6 mmol/L (137-145)
[2018-04-09 19:08] LABS: POTASSIUM 4.7 mmol/L (3.6-5.0)
[2018-04-09 19:21] LABS: GLUCOSE 417 mg/dL (75-110)
[2018-04-09] MEDS ORDERED: (PENDING PHARMACY ID) (Insulin Glargine,Hum.Rec.Anlog [Toujeo Solostar] 60 UNIT) SQ SCH (22:00)
[2018-04-09] MEDS ORDERED: INSULIN GLARGINE,HUM.REC.ANLOG 1,000 UNIT/10 ML UNIT SUBCUT SCH (22:00)
[2018-04-09 22:29] LABS: ANION GAP 11 (5-19); BLOOD UREA NITROGEN 15 mg/dL (7-20); CALCIUM 8.2 mg/dL (8.4-10.2); CARBON DIOXIDE 19 mmol/L (22-30); CHLORIDE 107 mmol/L (98-107); GLUCOSE 284 mg/dL (75-110); POTASSIUM 3.9 mmol/L (3.6-5.0); SODIUM 136.7 mmol/L (137-145)
[2018-04-10 02:25] LABS: ANION GAP 6 (5-19); BLOOD UREA NITROGEN 13 mg/dL (7-20); CALCIUM 8.2 mg/dL (8.4-10.2); CARBON DIOXIDE 23 mmol/L (22-30); CHLORIDE 112 mmol/L (98-107); GLUCOSE 117 mg/dL (75-110); POTASSIUM 3.5 mmol/L (3.6-5.0); SODIUM 140.7 mmol/L (137-145)
[2018-04-10 06:29] LABS: ABSOLUTE EOSINOPHILS # (AUTO) 0.2 10^3/uL (0.0-0.6); ABSOLUTE LYMPHOCYTES (AUTO) 2.4 10^3/uL (0.5-4.7); ABSOLUTE MONOCYTES (AUTO) 0.4 10^3/uL (0.1-1.4); ABSOLUTE NEUT (AUTO) 4.2 10^3/uL (1.7-8.2); BASOPHILS % (AUTO) 0.4 % (0-2); EOSINOPHILS % (AUTO) 2.5 % (0-6); HEMATOCRIT 35.9 % (36.0-47.0); HEMOGLOBIN 12.2 g/dL (12.0-15.5); LYMPHOCYTES % (AUTO) 33.3 % (13-45); MEAN CORPUSCULAR HEMOGLOBIN 30.4 pg (27.0-33.4); MEAN CORPUSCULAR VOLUME 89 fl (80-97); MONOCYTES % (AUTO) 6.2 % (3-13); PLATELET COUNT 138 10^3/uL (150-450); RED BLOOD COUNT 4.02 10^6/uL (3.72-5.28); RED CELL DISTRIBUTION WIDTH 13.3 % (11.5-14.0); SEGMENTED NEUTROPHILS % (AUTO) 57.6 % (42-78); TOTAL CELLS COUNTED % (AUTO) 100 %; WHITE BLOOD COUNT 7.2 10^3/uL (4.0-10.5)
[2018-04-10 06:56] LABS: ANION GAP 9 (5-19); BLOOD UREA NITROGEN 12 mg/dL (7-20); CALCIUM 8.2 mg/dL (8.4-10.2); CARBON DIOXIDE 21 mmol/L (22-30); CHLORIDE 112 mmol/L (98-107); GLUCOSE 77 mg/dL (75-110); POTASSIUM 3.6 mmol/L (3.6-5.0); SODIUM 142.2 mmol/L (137-145)
[2018-04-10] MEDS: CITALOPRAM HYDROBROMIDE 20 MG TABLET PO SCH (09:51)
[2018-04-10] MEDS: DOCUSATE SODIUM 100 MG CAPSULE PO SCH (09:51)
[2018-04-10] MEDS: PSYLLIUM SEED-SF 5.85 GM PACKET PO SCH (09:52)
[2018-04-10 11:37] LABS: ANION GAP 12 (5-19); BLOOD UREA NITROGEN 13 mg/dL (7-20); CALCIUM 8.7 mg/dL (8.4-10.2); CARBON DIOXIDE 21 mmol/L (22-30); CHLORIDE 107 mmol/L (98-107); GLUCOSE 238 mg/dL (75-110); POTASSIUM 4.1 mmol/L (3.6-5.0); SODIUM 139.9 mmol/L (137-145)
[2018-04-10 11:42] VITALS: BP 134/62
[2018-04-10] MEDS: INSULIN LISPRO 100 UNIT/ML 3 ML VIAL SUBCUT PRN (11:45)
--- NOTE | 2018-04-10 17:08 | PDOC DISCHARGE SUMMARY ---
General - Admit/Disc Date/PCP Admission Date/Primary Care Provider: 04/08/18 23:13 Discharge Date: 04/10/18 - Discharge Diagnosis (1) DKA (diabetic ketoacidoses) Is this a current diagnosis for this admission?: Yes Summary: She responded very quickly on insulin drip with IV fluids and electrolyte management. We took her off the drip when she got out of DKA and put her back on her usual regimen and when she was able get her long-acting insulin her blood sugars were very well controlled. - Additional Information Resuscitation Status: Full Code Discharge Diet: Diabetic Discharge Activity: Activity As Tolerated Home Medications: Citalopram Hydrobromide [Celexa 20 mg Tablet] 40 mg PO DAILY 02/12/12 Insulin Aspart [Novolog Insulin (Aspart) 100 unit/mL] 12 units SUBCUT AC MDD plus sliding scale max 50units 02/14/12 Dulaglutide [Trulicity] 0.5 ml SQ SA@199904/09/18 Empagliflozin [Jardiance] 10 mg PO DAILY 04/09/18 Insulin Glargine,Hum.rec.anlog [Toujeo Solostar] 60 unit SQ QHS 04/09/18 Losartan Potassium [Cozaar 100 mg Tablet] 100 mg PO DAILY 04/09/18 Rosuvastatin Calcium [Crestor] 40 mg PO DAILY 04/09/18 History of Present Illness History of Present Illness: CANDACE BATISTA is a 52 year old female with a history of diabetes, hypertension, dyslipidemia, tobacco, marijuana use and depression. Patient presents with 72 hours of polyuria polydipsia, hyperglycemia developing abdominal pain and nausea. Recognizing the symptoms from previous episodes of diabetic ketoacidosis she seeks evaluation in the emergency room. She is found to have severe metabolic acidosis with a pH of 6.9. She started on IV bicarbonate, insulin and referred to the hospitalist for admission. Patient denies recent illness but admits difficulty with obtaining insulin regiment. She is unaware of her current dosing simply stating she takes a lot of insulin. She denies chest pain or palpitations but is tachypneic. Hospital Course Hospital Course: She corrected very rapidly with IV fluids and insulin drip. We will put her back on her home regimen and her blood sugars did very well this morning. She is admittedly fairly noncompliant with her diet as an outpatient, and so caution her that dietary indiscretion will likely put her back in the same situation again sometime soon. She verbalized her understanding. Her labs and examination this morning are reassuring and she was discharged in good condition. Physical Exam Vital Signs: Temp Pulse Resp BP Pulse Ox 98.5 F 74 16 134/62 H 100 04/10/18 12:43 04/10/18 12:43 04/10/18 12:43 04/10/18 12:43 04/10/18 12:43 Intake & Output 04/09/18 04/10/18 04/11/18 06:59 06:59 06:59 Intake Total 758 3562 Output Total 0 Balance 758 3562 Weight 62.5 kg 66.3 kg General appearance: PRESENT: no acute distress, cooperative, well-manicured Respiratory exam: PRESENT: clear to auscultation priti, symmetrical, unlabored. ABSENT: accessory muscle use, rales, rhonchi, wheezes Cardiovascular exam: PRESENT: RRR, +S1, +S2 Vascular exam: PRESENT: normal capillary refill GI/Abdominal exam: PRESENT: normal bowel sounds, soft. ABSENT: distended, guarding, rebound, tenderness Extremities exam: ABSENT: clubbing, pedal edema Musculoskeletal exam: PRESENT: normal inspection. ABSENT: deformity Neurological exam: PRESENT: alert, awake, oriented to person, oriented to place , oriented to time Psychiatric exam: PRESENT: appropriate affect, normal mood Skin exam: PRESENT: dry, warm Results Laboratory Results: 04/10/18 06:04 04/10/18 10:40 04/09/18 04/09/18 04/10/18 18:10 21:55 01:57 WBC RBC Hgb Hct MCV MCH MCHC RDW Plt Count Seg Neutrophils % Lymphocytes % Monocytes % Eosinophils % Basophils % Absolute Neutrophils Absolute Lymphocytes Absolute Monocytes Absolute Eosinophils Absolute Basophils Sodium 136.6 L 136.7 L 140.7 Potassium 4.7 D 3.9 3.5 L Chloride 107 107 112 H Carbon Dioxide 16 L 19 L 23 Anion Gap 14 11 6 BUN 18 15 13 Creatinine 0.56 0.46 L 0.44 L Est GFR ( Amer) > 60 > 60 > 60 Est GFR (Non-Af Amer) > 60 > 60 > 60 Glucose 417 H* 284 H 117 H Calcium 7.8 L 8.2 L 8.2 L 12/04/1604/10/18 04/10/18 06:04 06:04 10:40 WBC 7.2 RBC 4.02 Hgb 12.2 Hct 35.9 L MCV 89 MCH 30.4 MCHC 34.0 RDW 13.3 Plt Count 138 L Seg Neutrophils % 57.6 Lymphocytes % 33.3 Monocytes % 6.2 Eosinophils % 2.5 Basophils % 0.4 Absolute Neutrophils 4.2 Absolute Lymphocytes 2.4 Absolute Monocytes 0.4 Absolute Eosinophils 0.2 Absolute Basophils 0.0 Sodium 142.2 139.9 Potassium 3.6 4.1 Chloride 112 H 107 Carbon Dioxide 21 L 21 L Anion Gap 9 12 BUN 12 13 Creatinine 0.35 L 0.43 L Est GFR ( Amer) > 60 > 60 Est GFR (Non-Af Amer) > 60 > 60 Glucose 77 238 H Calcium 8.2 L 8.7 Impressions: Head CT 04/08/18 18:02 IMPRESSION: 1. No acute intracranial pathology. No noncontrast CT findings to explain pain. 2. Bilateral maxillary sinus disease. EVIDENCE OF ACUTE STROKE: NO. Chest X-Ray 04/08/18 18:06 IMPRESSION: NO ACUTE RADIOGRAPHIC FINDING IN THE CHEST. Qualifiers - * PATIENT BEING DISCHARGED WITH ANY OF THE FOLLOWING DIAGNOSIS: No
== END 2018-04-10 13:11 | disposition home or self-care (01) | DRG 639 ==
LOC: ER 17:46 → EH 23:13 → UNDOADMIN 23:13 → EH 04-09 01:20 → ICU 04-09 01:20 → 4W 04-09 17:03
PROVIDERS: ADMIT Internal Medicine; ATTEND Internal Medicine
DX: E10.10 Type 1 diabetes mellitus with ketoacidosis without coma (principal); Z79.4 Long term (current) use of insulin; I10 Essential (primary) hypertension; E78.5 Hyperlipidemia, unspecified; F32.9 Major depressive disorder, single episode, unspecified; F17.210 Nicotine dependence, cigarettes, uncomplicated; Z82.49 Family history of ischemic heart disease and other diseases of the circulatory system; Z83.438 Family history of other disorder of lipoprotein metabolism and other lipidemia; Z88.8 Allergy status to other drugs, medicaments and biological substances; K59.00 Constipation, unspecified
CPT/HCPCS: 36415; 70450; 71045; 80048; 80053; 80307; 81001; 82803; 82962; 83690; 84484; 85025; 93005; 93010; 96360; 96361; 99291; 99292; J1644; J1815; J3480; J3490; J7030; J7060

== ENCOUNTER 2020-03-19 20:44 | Inpatient (IN) | payer OTHER ==
[2020-03-20] MEDS ORDERED: ONDANSETRON 4 MG TAB.RAPDIS PO ONE (00:02)
[2020-03-20] MEDS ORDERED: RINGERS SOLUTION,LACTATED 1,000 ML IV ONE (00:02)
[2020-03-20] MEDS ORDERED: METOCLOPRAMIDE HCL INJ/PF 10 MG/2 ML SDV IV ONE (00:04)
--- NOTE | 2020-03-20 00:06 | ER Document Report ---
ED Medical Screen (RME) - General Chief Complaint: Nausea/Vomiting/Diarrhea Stated Complaint: VOMITING,DIARRHEA,WEAKNESS Time Seen by Provider: 03/19/20 23:59 Mode of Arrival: Wheelchair Information source: Patient Notes: HPI; 54-year-old female presents to the emergency room complaining of nausea, vomiting, and diarrhea that started earlier today. Generalized fatigue. No fevers. States she is unable to tolerate anything p.o. Denies any ill contacts. No bad food. No recent antibiotics. No known COVID-19 exposure. PE: Alert and oriented x3. Mild distress noted. Lungs: Clear to auscultation without rales, rhonchi, wheezes. Heart: Tachycardic without murmurs, rubs, gallops. Patient was evaluated during the global COVID-19 pandemic and that diagnosis was suspected/considered upon their initial presentation. Their evaluation, treatment and testing was consistent with current guidelines for patients who presents with complaints or systems that may be related to COVID-19. I have greeted and performed a rapid initial assessment of this patient. A comprehensive ED assessment and evaluation of the patient, analysis of test results and completion of the medical decision making process will be conducted by additional ED providers. I have specifically instructed the patient or family members with the patient to immediately return to any nursing staff should anything change in the patient's condition or with their chief complaint. TRAVEL OUTSIDE OF THE [place] IN LAST 30 DAYS: No - Related Data Allergies/Adverse Reactions: SAGAR Inhibitors [Sagar Inhibitors] Allergy (Unknown, Verified 03/19/20 23:59) Lpwdddt-Rbc-Zzi Reductase Inhibitor Allergy (Unknown, Verified 03/19/20 23:59) Past Medical History - Social History Frequency of alcohol use: Occasional Drug Abuse: None - Past Medical History Cardiac Medical History: Reports: Hx Hypercholesterolemia - no longer being treated, Hx Hypertension - no longer being treated Pulmonary Medical History: Denies: Hx Tuberculosis Endocrine Medical History: Reports: Hx Diabetes Mellitus Type 1 Renal/ Medical History: Denies: Hx Peritoneal Dialysis Psychiatric Medical History: Reports: Hx Depression Past Surgical History: Denies: Hx Pacemaker - Immunizations Hx Diphtheria, Pertussis, Tetanus Vaccination: Yes Physical Exam - Vital signs Vitals: Temp Pulse Resp BP Pulse Ox 98.1 F 110 H 20 153/68 H 97 03/19/20 21:24 03/19/20 21:24 03/19/20 21:24 03/19/20 21:24 03/19/20 21:24 Course - Vital Signs Vital signs: Temp Pulse Resp BP Pulse Ox 98.1 F 110 H 20 153/68 H 97 03/19/20 21:24 03/19/20 21:24 03/19/20 21:24 03/19/20 21:24 03/19/20 21:24
--- NOTE | 2020-03-20 00:45 | ER Document Report ---
ED General - General Chief Complaint: Nausea/Vomiting/Diarrhea Stated Complaint: VOMITING,DIARRHEA,WEAKNESS Time Seen by Provider: 03/19/20 23:59 Mode of Arrival: Wheelchair Information source: Patient Notes: Patient is a 54-year-old female presenting with generalized weakness, nausea, vomiting, diarrhea, myalgias, and fatigue. History of DKA in the past. Patient notes that symptoms started today. She is not having any shortness of breath. Last blood glucose was 330 TRAVEL OUTSIDE OF THE [place] IN LAST 30 DAYS: No - Related Data Allergies/Adverse Reactions: SAGAR Inhibitors [Sagar Inhibitors] Allergy (Unknown, Verified 03/19/20 23:59) Cbpwhkj-Ixc-Mcd Reductase Inhibitor Allergy (Unknown, Verified 03/19/20 23:59) Past Medical History - General Information source: Patient - Social History Smoking Status: Current Every Day Smoker Frequency of alcohol use: Occasional Drug Abuse: None Family History: Hyperlipidemia, Hypertension Patient has homicidal ideation: No - Past Medical History Cardiac Medical History: Reports: Hx Hypercholesterolemia - no longer being treated, Hx Hypertension - no longer being treated Pulmonary Medical History: Denies: Hx Tuberculosis Endocrine Medical History: Reports: Hx Diabetes Mellitus Type 1 Renal/ Medical History: Denies: Hx Peritoneal Dialysis Psychiatric Medical History: Reports: Hx Depression Past Surgical History: Denies: Hx Pacemaker - Immunizations Hx Diphtheria, Pertussis, Tetanus Vaccination: Yes Review of Systems - Review of Systems Notes: Constitutional: No fevers. No chills. Positive for weakness, malaise EENT: No eye redness. No eye pain. No ear pain. No sore throat. Cardiovascular: No chest pain. No palpitations. Respiratory: No cough. No shortness of breath. No respiratory distress. Gastrointestinal: Positive nausea vomiting and diarrhea Genitourinary: Atraumatic. No lesions. No pain. No discharge. Musculoskeletal: Atraumatic. No swelling. No deformities. Positive myalgias Skin: No rash or lesions. Lymphatic: No swollen lymph nodes. Neurologic: No headache. No syncope. Psychiatric: No suicidal or homicidal ideation. Physical Exam - Vital signs Vitals: Temp Pulse Resp BP Pulse Ox 98.1 F 110 H 20 153/68 H 97 03/19/20 21:24 03/19/20 21:24 03/19/20 21:24 03/19/20 21:24 03/19/20 21:24 - Notes Notes: General: Malaised appearance Cardiac: Well-perfused. Mild tachycardia. no murmurs, rubs, or gallops. Pulmonary: No respiratory distress. No cyanosis. Bilateral lung fiels are clear to auscultation. Abdominal: Non-distended. Non-rigid. Bowels sounds are present in all four quadrants. No guarding or rebound. HEENT: Head is atraumatic. Conjunctivae not reddened. No tearing. PERRL. EOMI. Orbits atraumatic. No periorbital swelling or erythema. Oropharynx is without erythema, swelling, or exudates. Neck: Supple. No adenopathy. No meningismus. Dermatologic: Warm with good turgor. No rash. Atraumatic. Chest: Atraumatic. No chest wall tenderness to palpation. Musculoskeletal: Moves all extremities well. No range of motion deficits. no muscular or joint tenderness. No paraspinal muscle tenderness. no midline spinal tenderness or step-off. Genitourinary: Examination deferred Neurologic: No gross neurologic deficits. Psychiatric: Normal mood. Course - Re-evaluation Re-evalutation: 03/20/20 04:20 Patient is in diabetic ketoacidosis. Also has a QUITE elevated white white blood cell count that we do not know the source for. Spoke with DIVYA Ronquillo who is on-call for ICU. He will come by and see the patient. He wants blood, sputum, and urine cultures which are ordered. He says to hold off on the bicarbonate drip. - Vital Signs Vital signs: Temp Pulse Resp BP Pulse Ox 98.9 F 118 H 18 131/65 H 96 03/20/20 03:41 03/20/20 03:41 03/20/20 03:41 03/20/20 03:41 03/20/20 03:41 - Laboratory Result Diagrams: 03/20/20 00:08 03/20/20 00:08 Laboratory results interpreted by me: 03/20/20 03/20/20 03/20/20 00:08 00:08 00:46 WBC 29.8 H RBC 5.41 H Hgb 16.0 H Hct 50.0 H Seg Neuts % (Manual) 86 H Lymphocytes % (Manual) 11 L Abs Neuts (Manual) 25.6 H VBG pH 7.06 L* VBG HCO3 11.3 L Potassium 5.7 H Carbon Dioxide 7 L* Anion Gap 31 H BUN 23 H Glucose 379 H POC Glucose Lactic Acid Calcium 10.7 H ALT 42 H Urine Protein Urine Glucose (UA) Urine Ketones Urine Blood 03/20/20 03/20/20 03/20/20 01:37 03:10 03:25 WBC RBC Hgb Hct Seg Neuts % (Manual) Lymphocytes % (Manual) Abs Neuts (Manual) VBG pH VBG HCO3 Potassium Carbon Dioxide Anion Gap BUN Glucose POC Glucose 400 H Lactic Acid 3.7 H Calcium ALT Urine Protein 30 H Urine Glucose (UA) >=500 H Urine Ketones 80 H Urine Blood SMALL H 03/20/20 04:10 WBC RBC Hgb Hct Seg Neuts % (Manual) Lymphocytes % (Manual) Abs Neuts (Manual) VBG pH VBG HCO3 Potassium Carbon Dioxide Anion Gap BUN Glucose POC Glucose 380 H Lactic Acid Calcium ALT Urine Protein Urine Glucose (UA) Urine Ketones Urine Blood Discharge - Discharge Clinical Impression: Diabetic ketoacidosis Qualifiers: Diabetes mellitus type: type 1 Diabetes mellitus complication detail: without coma Qualified Code(s): E10.10 - Type 1 diabetes mellitus with ketoacidosis without coma Leukocytosis Qualifiers: Leukocytosis type: unspecified Qualified Code(s): D72.829 - Elevated white blood cell count, unspecified Condition: Fair Disposition: ADMITTED INPATIENT Admitting Provider: BILDAQUANIA Unit Admitted: ICU
[2020-03-20 00:53] LABS: MEAN CORPUSCULAR HEMOGLOBIN 29.6 pg (27.0-33.4); MEAN CORPUSCULAR VOLUME 92 fl (80-97); PLATELET COUNT 289 10^3/uL (150-450); RED BLOOD COUNT 5.41 10^6/uL (3.72-5.28); RED CELL DISTRIBUTION WIDTH 13.8 % (11.5-14.0); WHITE BLOOD COUNT 29.8 10^3/uL (4.0-10.5)
[2020-03-20 01:03] LABS: ALKALINE PHOSPHATASE 92 U/L (38-126); ASPARTATE AMINO TRANSFERASE 33 U/L (14-36); BILIRUBIN,DIRECT 0.3 mg/dL (0.0-0.4); BILIRUBIN,TOTAL 0.8 mg/dL (0.2-1.3); BLOOD UREA NITROGEN 23 mg/dL (7-20); CALCIUM 10.7 mg/dL (8.4-10.2); CHLORIDE 101 mmol/L (98-107); GLUCOSE 379 mg/dL (75-110); POTASSIUM 5.7 mmol/L (3.6-5.0); TOTAL PROTEIN 8.1 g/dL (6.3-8.2)
[2020-03-20 01:05] LABS: VENOUS BLOOD BASE EXCESS -18.6 mmol/L; VENOUS BLOOD HCO3 11.3 mmol/L (20-32); VENOUS BLOOD PCO2 40.9 mmHg (35-63)
[2020-03-20 01:16] LABS: ANION GAP 31 (5-19)
[2020-03-20 01:29] LABS: ABSOLUTE LYMPHOCYTES# (MANUAL) 3.3 10^3/uL (0.5-4.7); ABSOLUTE MONOCYTES # (MANUAL) 0.9 10^3/uL (0.1-1.4); BASOPHILS % (MANUAL) 0 % (0-2); EOSINOPHILS % (MANUAL) 0 % (0-6); HYPERSEGMENTED NEUTROPHILS PRESENT; LYMPHOCYTES % (MANUAL) 11 % (13-45); MONOCYTES % (MANUAL) 3 % (3-13); PLATELET COMMENT ADEQUATE; SEGMENTED NEUTROPHILS % (MAN) 86 % (42-78); TOTAL CELLS COUNTED 100
[2020-03-20 01:31] LABS: BURR CELLS SLIGHT; OVALOCYTES SLIGHT
[2020-03-20 01:33] LABS: CARBON DIOXIDE 7 mmol/L (22-30)
[2020-03-20 01:33] LABS: VENOUS BLOOD PH 7.06 (7.30-7.42)
[2020-03-20] MEDS ORDERED: DEXTROSE 50%-WATER 25 GM/50 ML DISP.SYRIN IV PRN ×4 (01:52→13:46)
[2020-03-20] MEDS ORDERED: GLUCAGON,HUMAN RECOMB 1 MG INJ IM PRN ×2 (01:52→13:46)
[2020-03-20] MEDS ORDERED: NORMAL SALINE 100 ML with INSULIN REGULAR, HUMAN 100 UNIT IV PRN ×4 (01:52→06:52)
[2020-03-20] MEDS ORDERED: DEXTROSE 40% GEL 15 GM TUBE PO PRN ×4 (01:52→13:46)
--- NOTE | 2020-03-20 02:39 | RADIOLOGY REPORT (SQ) ---
EXAM DESCRIPTION: XR CHEST 1 VIEW COMPLETED DATE/TME: 03/20/2020 02:14 CLINICAL HISTORY: 54 years, Female, leukocytosis COMPARISON: 04/08/2018 NUMBER OF VIEWS: One TECHNIQUE: AP view of the chest LIMITATIONS: None. FINDINGS: Lungs are clear. Heart is normal in size. No pneumothorax or pleural effusion. Bones are unremarkable. No intraperitoneal free air IMPRESSION: No acute cardiopulmonary abnormality copyright 2010 [employer]- All Rights Reserved
[2020-03-20 02:49] LABS: APPEARANCE,URINE CLEAR; BILIRUBIN,URINE NEGATIVE (NEGATIVE); COLOR,URINE STRAW; GLUCOSE, URINE >=500 mg/dL (NEGATIVE); KETONES,URINE 80 mg/dL (NEGATIVE); LEUKOCYTE ESTERASE,URINE NEGATIVE (NEGATIVE); NITRITE,URINE NEGATIVE (NEGATIVE); PROTEIN,URINE 30 mg/dL (NEGATIVE); URINE SPECIFIC GRAVITY 1.024; UROBILINOGEN,URINE NEGATIVE mg/dL (<2.0)
[2020-03-20 03:07] LABS: A TYPE INFLUENZA AG NEGATIVE (NEGATIVE); B INFLUENZA AG NEGATIVE (NEGATIVE)
[2020-03-20] MEDS ORDERED: HUM INSULIN NPH/REG INSULIN HM 100 UNIT/1 ML 3 ML SUBCUT ONE (03:16)
[2020-03-20] MEDS ORDERED: SODIUM BICARBONATE 4.2% INJ (2.5 MEQ/5 ML) VIAL INJ ONE (03:16)
[2020-03-20] MEDS ORDERED: SODIUM BICARBONATE 8.4% INJ 50 MEQ/50 ML DISP.SYRIN IV ONE (03:17)
[2020-03-20] MEDS: NORMAL SALINE 1000 ML 1,000 ML IV PRN ×2 (04:30→06:39)
[2020-03-20] MEDS ORDERED: RINGERS SOLUTION,LACTATED 1,000 ML IV PRN (06:47)
[2020-03-20] MEDS ORDERED: ACETAMINOPHEN 325 MG TABLET PO PRN (06:47)
[2020-03-20] MEDS ORDERED: ONDANSETRON HCL INJ/PF 4 MG/2 ML SDV IV PRN (06:47)
--- NOTE | 2020-03-20 06:58 | PDOC H&P ---
History of Present Illness Admission Date/PCP: 03/20/20 04:47 Patient complains of: Nausea, vomiting, diarrhea History of Present Illness: CANDACE BATISTA is a 54 year old female with a history of insulin-dependent diabetes, hyperlipidemia who presents with a 1 day duration of nausea, vomiting, watery diarrhea with associated sore throat and runny nose. She also states that she has been feeling increasingly weak and fatigued. Patient also reports that she has been having increased frequency of urination. She denies any fever, chills, cough, palpitation, chest pain, abdominal pain, dysuria or dizziness. She denies any recent sick contact history. Currently she is on sliding scale insulin. She states that long-acting Lantus was was discontinued in the past due to history of recurrent hypoglycemia. Past Medical History Cardiac Medical History: Reports: Hyperlipidema - no longer being treated, Hypertension - no longer being treated Pulmonary Medical History: Denies: Tuberculosis Endocrine Medical History: Reports: Diabetes Mellitus Type 1 Psychiatric Medical History: Reports: Depression Hematology: Reports: Anemia Past Surgical History Past Surgical History: Denies: Pacemaker Social History Information Source: Patient Smoking Status: Current Every Day Smoker Frequency of Alcohol Use: Rare Hx Recreational Drug Use: Yes - as a teenage Drugs: Marijuana Hx Prescription Drug Abuse: No - Advance Directive Resuscitation Status: Full Code Family History Family History: Hyperlipidemia, Hypertension Parental Family History Reviewed: Yes Children Family History Reviewed: Yes Sibling(s) Family History Reviewed.: Yes Medication/Allergy Home Medications: Citalopram Hydrobromide [Celexa 20 mg Tablet] 40 mg PO DAILY 02/12/12 Insulin Aspart [Novolog Insulin (Aspart) 100 unit/mL] 12 units SUBCUT AC MDD p edwige sliding scale max 50units 02/14/12 Dulaglutide [Trulicity] 0.5 ml SQ SA@199904/09/18 Empagliflozin [Jardiance] 10 mg PO DAILY 04/09/18 Insulin Glargine,Hum.rec.anlog [Toujeo Solostar] 60 unit SQ QHS 04/09/18 Losartan Potassium [Cozaar 100 mg Tablet] 100 mg PO DAILY 04/09/18 Rosuvastatin Calcium [Crestor] 40 mg PO DAILY 04/09/18 Allergies/Adverse Reactions: SAGAR Inhibitors [Sagar Inhibitors] Allergy (Unknown, Verified 03/19/20 23:59) Omrsflm-Dfa-Ufb Reductase Inhibitor Allergy (Unknown, Verified 03/19/20 23:59) Review of Systems Constitutional: PRESENT: headache(s). ABSENT: chills, fever(s), weight gain, weight loss Eyes: ABSENT: visual disturbances Ears: ABSENT: hearing changes Nose, Mouth, and Throat: ABSENT: as per HPI, headache(s), mouth pain Cardiovascular: ABSENT: chest pain, dyspnea on exertion, edema, orthropnea, palpitations Respiratory: ABSENT: cough, hemoptysis Gastrointestinal: PRESENT: as per HPI Genitourinary: ABSENT: dysuria, hematuria Musculoskeletal: ABSENT: joint swelling Integumentary: ABSENT: rash, wounds Neurological: ABSENT: abnormal gait, abnormal speech, confusion, dizziness, focal weakness, syncope Psychiatric: ABSENT: anxiety, depression, homidical ideation, suicidal ideation Endocrine: PRESENT: as per HPI Hematologic/Lymphatic: ABSENT: easy bleeding, easy bruising Physical Exam Vital Signs: Temp Pulse Resp BP Pulse Ox 98.7 F 118 H 25 H 116/51 L 98 03/20/20 05:32 03/20/20 03:41 03/20/20 06:01 03/20/20 06:00 03/20/20 06:01 Intake & Output 03/18/20 03/19/20 03/20/20 06:59 06:59 06:59 Intake Total 2006 Balance 2006 Weight 59.6 kg Additional comments: GENERAL APPEARANCE: Appears lethargic but oriented x3, in no acute distress HEENT: Normocephalic and atraumatic. No scleral icterus. Dry oral mucosa NECK: Supple. No lymphadenopathy or tenderness. No JVD CHEST: Symmetric. Nontender to palpation. LUNGS: Clear with good air entry bilaterally. No wheezing or crackles HEART: Regular rate and rhythm with normal S1 and S2. No murmurs, gallops, or rubs. ABDOMEN: Flat, soft, active bowel sounds, no direct or rebound tenderness. No organomegaly detected. EXTREMITIES: No cyanosis, clubbing, or edema. MUSCULOSKELETAL: No deformity, atrophy or swelling noted PSYCHIATRIC: Recent and remote memory is intact. Appropriate mood and affect. SKIN: Warm, dry, and well perfused. No lesions or rashes are noted. NEUROLOGIC: No focal sensory or motor deficits are noted. Results Laboratory Results: 03/20/20 00:08 03/20/20 00:08 03/20/20 03/20/20 03/20/20 00:08 00:08 00:08 WBC 29.8 H RBC 5.41 H Hgb 16.0 H Hct 50.0 H MCV 92 MCH 29.6 MCHC 32.0 RDW 13.8 Plt Count 289 Seg Neutrophils % Not Reportable VBG pH VBG pCO2 VBG HCO3 VBG Base Excess Sodium 138.7 Potassium 5.7 H Chloride 101 Carbon Dioxide 7 L* Anion Gap 31 H BUN 23 H Creatinine 0.86 Est GFR ( Amer) > 60 Glucose 379 H Lactic Acid Calcium 10.7 H Total Bilirubin 0.8 AST 33 Alkaline Phosphatase 92 Total Protein 8.1 Albumin 5.0 Serum HCG, Qual NEGATIVE Urine Color Urine Appearance Urine pH Ur Specific [place] Urine Protein Urine Glucose (UA) Urine Ketones Urine Blood Urine Nitrite Ur Leukocyte Esterase Urine WBC (Auto) Urine RBC (Auto) 03/20/20 03/20/20 03/20/20 00:46 01:37 03:10 WBC RBC Hgb Hct MCV MCH MCHC RDW Plt Count Seg Neutrophils % VBG pH 7.06 L* VBG pCO2 40.9 VBG HCO3 11.3 L VBG Base Excess -18.6 Sodium Potassium Chloride Carbon Dioxide Anion Gap BUN Creatinine Est GFR ( Amer) Glucose Lactic Acid 3.7 H Calcium Total Bilirubin AST Alkaline Phosphatase Total Protein Albumin Serum HCG, Qual Urine Color STRAW Urine Appearance CLEAR Urine pH 5.0 Ur Specific [place] 1.024 Urine Protein 30 H Urine Glucose (UA) >=500 H Urine Ketones 80 H Urine Blood SMALL H Urine Nitrite NEGATIVE Ur Leukocyte Esterase NEGATIVE Urine WBC (Auto) 0 Urine RBC (Auto) 0 03/20/20 00:08 Troponin I < 0.012 Impressions: Chest X-Ray 03/20/20 01:38 IMPRESSION: No acute cardiopulmonary abnormality copyright 2010 [employer]- All Rights Reserved Assessment and Plan - Diagnosis (1) DKA (diabetic ketoacidoses) Qualifiers: Diabetes mellitus type: type 1 Diabetes mellitus complication detail: without coma Qualified Code(s): E10.10 - Type 1 diabetes mellitus with ketoacidosis without coma Is this a current diagnosis for this admission?: Yes Plan: Presents with nausea vomiting and generalized weakness No clear precipitating factor identified Blood sugar was 376 on presentation Patient has anion gap of 31 with a bicarb of 7 She also has severe acidosis with VBG showing a pH of 7.06 Started on insulin infusion per DKA protocol Accu-Chek every hourly BMP every 4 hourly When blood sugar reads 200 change IV fluids to D5 half-normal saline or based on sodium value Give long-acting insulin when gap closes and continue infusion for 2 hours following that The supplemental potassium if serum potassium level falls below 5.5 Will keep her n.p.o. for now (2) Leukocytosis Qualifiers: Leukocytosis type: unspecified Qualified Code(s): D72.829 - Elevated white blood cell count, unspecified Is this a current diagnosis for this admission?: Yes Plan: Likely due to hemoconcentration from dehydration Chest x-ray, UA have been unremarkable Blood culture obtained and will be followed Will monitor her for any sign of infection Recheck CBC in the a.m. (3) Nausea & vomiting Is this a current diagnosis for this admission?: Yes Plan: Likely due to DKA Zofran as needed Patient was screened for Covid at the ED due to symptoms of nausea vomiting and diarrhea But symptoms overlap with symptoms of DKA (4) Tobacco abuse Is this a current diagnosis for this admission?: Yes Plan: Counseled on the harms and risks of smoking and advised to consider seeing cessation (5) Hyperlipidemia Is this a current diagnosis for this admission?: Yes Plan: Continue statin - Time Time Spent with patient: 35 or more minutes Total Critical Time (Minutes): 40 Smoking Cessation Education: 3 to 10 minutes Medications reviewed and adjusted accordingly: Yes Anticipated Discharge Disposition: Home, Self Care Anticipated Discharge Timeframe: within 48 hours - Inpatient Certification Based on my medical assessment, after consideration of the patient's comorbidities, presenting symptoms, or acuity I expect that the services needed warrant INPATIENT care.: Yes I certify that my determination is in accordance with my understanding of Medicare's requirements for reasonable and necessary INPATIENT services [42 CFR 412.3e].: Yes Medical Necessity: Significant Comorbidiites Make Outpatient Treatment Too Ri stacey, Need Close Monitoring Due to Risk of Patient Decompensation, Need For IV Fluids, Risk of Complication if Not Cared For in Hospital Post Hospital Care: D/C or Transfer Summary
[2020-03-20 09:14] LABS: BLOOD UREA NITROGEN 21 mg/dL (7-20); CALCIUM 9.3 mg/dL (8.4-10.2); CARBON DIOXIDE 11 mmol/L (22-30); GLUCOSE 195 mg/dL (75-110); POTASSIUM 5.4 mmol/L (3.6-5.0)
[2020-03-20 09:19] LABS: CHLORIDE 112 mmol/L (98-107)
[2020-03-20 09:24] LABS: ANION GAP 21 (5-19)
[2020-03-20] MEDS: FAMOTIDINE 20 MG TABLET PO SCH ×2 (10:52→22:10)
[2020-03-20] MEDS: ENOXAPARIN SODIUM INJ 40 MG/0.4 ML DISP.SYRIN SUBCUT SCH (10:52)
[2020-03-20] MEDS ORDERED: DEXTROSE 5%-NORMAL SALINE 1,000 ML IV PRN (12:06)
[2020-03-20 13:42] LABS: ANION GAP 16 (5-19); BLOOD UREA NITROGEN 20 mg/dL (7-20); CALCIUM 9.3 mg/dL (8.4-10.2); CARBON DIOXIDE 15 mmol/L (22-30); CHLORIDE 111 mmol/L (98-107); GLUCOSE 106 mg/dL (75-110)
[2020-03-20 13:44] LABS: POTASSIUM 4.4 mmol/L (3.6-5.0)
[2020-03-20] MEDS ORDERED: INSULIN GLARGINE,HUM.REC.ANLOG 1,000 UNIT/10 ML VIAL (PYX) SUBCUT SCH (14:30)
[2020-03-20] MEDS ORDERED: INSULIN GLARGINE,HUM.REC.ANLOG 1,000 UNIT/10 ML VIAL (PYX) SUBCUT ONE (14:30)
[2020-03-20] MEDS ORDERED: (PENDING PHARMACY ID) (Semaglutide [Ozempic] 0.25 MG/0.2 ML Pen.Injctr) PO SCH (16:00)
[2020-03-20] MEDS ORDERED: EMPAGLIFLOZIN 10 MG PO SCH ×2 (16:00→18:00)
[2020-03-20] MEDS: CITALOPRAM HYDROBROMIDE 20 MG TABLET PO SCH (16:39)
[2020-03-20] MEDS: INSULIN LISPRO 100 UNIT/ML 3 ML VIAL SUBCUT SCH (16:40)
[2020-03-20] MEDS ORDERED: INSULIN GLARGINE,HUM.REC.ANLOG 1,000 UNIT/10 ML VIAL SUBCUT SCH (18:00)
--- NOTE | 2020-03-20 21:06 | EKG REPORT ---
SEVERITY:- BORDERLINE ECG - SINUS TACHYCARDIA PROBABLE LEFT ATRIAL ABNORMALITY BORDERLINE PROLONGED QT INTERVAL : Confirmed by: Shamika Dominique MD 20-Mar-2020 21:05:41
[2020-03-20] MEDS ORDERED: ATORVASTATIN CALCIUM 80 MG TABLET PO SCH (22:00)
[2020-03-21 03:59] VITALS: BP 111/60
[2020-03-21] MEDS ORDERED: (PENDING PHARMACY ID) (Rosuvastatin Calcium [Crestor] 40 MG Tablet) PO SCH (10:00)
[2020-03-21] MEDS: FAMOTIDINE 20 MG TABLET PO SCH (10:43)
[2020-03-21] MEDS: CITALOPRAM HYDROBROMIDE 20 MG TABLET PO SCH (10:43)
[2020-03-21] MEDS: ENOXAPARIN SODIUM INJ 40 MG/0.4 ML DISP.SYRIN SUBCUT SCH (10:44)
[2020-03-21] MEDS: INSULIN LISPRO 100 UNIT/ML 3 ML VIAL SUBCUT SCH ×2 (11:21)
[2020-03-21 13:23] LABS: ABSOLUTE EOSINOPHILS # (AUTO) 0.1 10^3/uL (0.0-0.6); ABSOLUTE LYMPHOCYTES (AUTO) 2.6 10^3/uL (0.5-4.7); ABSOLUTE MONOCYTES (AUTO) 0.6 10^3/uL (0.1-1.4); ABSOLUTE NEUT (AUTO) 8.7 10^3/uL (1.7-8.2); BASOPHILS % (AUTO) 0.4 % (0-2); EOSINOPHILS % (AUTO) 0.8 % (0-6); HEMATOCRIT 36.7 % (36.0-47.0); LYMPHOCYTES % (AUTO) 21.5 % (13-45); MEAN CORPUSCULAR HEMOGLOBIN 30.2 pg (27.0-33.4); MEAN CORPUSCULAR HGB CONC 34.2 g/dL (32.0-36.0); MONOCYTES % (AUTO) 5.3 % (3-13); PLATELET COUNT 185 10^3/uL (150-450); RED BLOOD COUNT 4.16 10^6/uL (3.72-5.28); RED CELL DISTRIBUTION WIDTH 13.8 % (11.5-14.0); TOTAL CELLS COUNTED % (AUTO) 100 %; WHITE BLOOD COUNT 12.1 10^3/uL (4.0-10.5)
[2020-03-21 13:24] LABS: HEMOGLOBIN 12.6 g/dL (12.0-15.5); MEAN CORPUSCULAR VOLUME 88 fl (80-97)
[2020-03-21 13:30] LABS: ANION GAP 8 (5-19); BLOOD UREA NITROGEN 15 mg/dL (7-20); CALCIUM 9.2 mg/dL (8.4-10.2); CHLORIDE 103 mmol/L (98-107); GLUCOSE 164 mg/dL (75-110); POTASSIUM 4.6 mmol/L (3.6-5.0)
[2020-03-21 13:32] LABS: CARBON DIOXIDE 25 mmol/L (22-30)
--- NOTE | 2020-03-21 17:28 | PDOC DISCHARGE SUMMARY ---
Impression - Admit/DC Date/PCP Admission Date/Primary Care Provider: 03/20/20 04:47 Discharge Date: 03/21/20 - Additional Information Resuscitation Status: Full Code Discharge Diet: Diabetic Discharge Activity: Activity As Tolerated, Balance Activity w/Rest Home Medications: Citalopram Hydrobromide [Celexa 20 mg Tablet] 40 mg PO DAILY 02/12/12 Insulin Aspart [Novolog Insulin (Aspart) 100 unit/mL] 12 units SUBCUT AC 02/14/12 Empagliflozin [Jardiance] 10 mg PO QPM 04/09/18 Losartan Potassium [Cozaar 100 mg Tablet] 50 mg PO DAILY 04/09/18 Rosuvastatin Calcium [Crestor] 40 mg PO DAILY 04/09/18 Insulin Aspart [Novolog Flexpen] 0 unit SUBCUT .SLD SCALE 03/20/20 Insulin Degludec [Tresiba] 60 unit SQ DAILY 03/20/20 Semaglutide [Ozempic] 0.5 mg PO SA@1000 03/20/20 History of Present Illiness History of Present Illness: As per admitting physician CANDACE BATISTA is a 54 year old female with a history of insulin-dependent diabetes, hyperlipidemia who presents with a 1 day duration of nausea, vomiting, watery diarrhea with associated sore throat and runny nose. She also states that she has been feeling increasingly weak and fatigued. Patient also reports that she has been having increased frequency of urination. She denies any fever, chills, cough, palpitation, chest pain, abdominal pain, dysuria or dizziness. She denies any recent sick contact history. Currently she is on sliding scale insulin. She states that long-acting Lantus was was discontinued in the past due to history of recurrent hypoglycemia. Hospital Course Hospital Course: (1) DKA (diabetic ketoacidoses) Presented with nausea vomiting and generalized weakness No clear precipitating factor identified Blood sugar was 376 on presentation Patient had anion gap of 31 with a bicarb of 7 She also has severe acidosis with VBG showing a pH of 7.06 Started on insulin infusion per DKA protocol Anion gap closed. Patient switched to subcutaneous insulin. P.o. tolerant. Having normal bowel and bladder movements. Of note patient was restarted on a lower dose of her home insulin, was noted to be hypoglycemic, her Lantus was DC'd. As per my conversation patient is stating that she prefer Lantus due to her labile blood glucose level by her and only managing her diabetes with sliding scale insulin, Ozempic and Jardiance. 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 (2) Leukocytosis Moderate improvement. Likely due to hemoconcentration from dehydration Chest x-ray, UA have been unremarkable Blood culture negative x24 hours. Afebrile. No apparent sign of infection. Patient was advised to come back to ED if any sign of infection. (3) Nausea & vomiting Resolved. Likely due to DKA Zofran as needed Patient was screened for Covid at the ED due to symptoms of nausea vomiting and diarrhea which back negative. But symptoms overlap with symptoms of DKA (4) Tobacco abuse Counseled on the harms and risks of smoking and advised to consider seeing cessation (5) Hyperlipidemia Continued statin Physical Exam Vital Signs: Temp Pulse Resp BP Pulse Ox 97.5 F 84 16 111/60 99 03/21/20 15:58 03/21/20 15:58 03/21/20 15:58 03/21/20 15:58 03/21/20 15:58 Intake & Output 03/20/20 03/21/20 03/22/20 06:59 06:59 06:59 Intake Total 2011 2437 Balance 2011 2437 Weight 59.6 kg 58.2 kg General appearance: PRESENT: no acute distress, well-developed, well-nourished Neck exam: ABSENT: carotid bruit, JVD, lymphadenopathy, thyromegaly Respiratory exam: PRESENT: clear to auscultation priti. ABSENT: rales, rhonchi, wheezes Cardiovascular exam: PRESENT: RRR. ABSENT: diastolic murmur, rubs, systolic murmur GI/Abdominal exam: PRESENT: normal bowel sounds, soft. ABSENT: distended, guarding, mass, organolmegaly, rebound, tenderness Neurological exam: PRESENT: alert, awake, oriented to person, oriented to place, oriented to time, oriented to situation, CN II-XII grossly intact. ABSENT: motor sensory deficit Results Laboratory Results: WBC 12.1 10^3/uL (4.0-10.5) H 03/21/20 11:50 RBC 4.16 10^6/uL (3.72-5.28) 03/21/20 11:50 Hgb 12.6 g/dL (12.0-15.5) D 03/21/20 11:50 Hct 36.7 % (36.0-47.0) 03/21/20 11:50 MCV 88 fl (80-97) D 03/21/20 11:50 MCH 30.2 pg (27.0-33.4) 03/21/20 11:50 MCHC 34.2 g/dL (32.0-36.0) 03/21/20 11:50 RDW 13.8 % (11.5-14.0) 03/21/20 11:50 Plt Count 185 10^3/uL (150-450) 03/21/20 11:50 Lymph % (Auto) 21.5 % (13-45) 03/21/20 11:50 [place] % (Auto) 5.3 % (3-13) 03/21/20 11:50 Eos % (Auto) 0.8 % (0-6) 03/21/20 11:50 Baso % (Auto) 0.4 % (0-2) 03/21/20 11:50 Absolute Neuts (auto) 8.7 10^3/uL (1.7-8.2) H 03/21/20 11:50 Absolute Lymphs (auto) 2.6 10^3/uL (0.5-4.7) 03/21/20 11:50 Absolute Monos (auto) 0.6 10^3/uL (0.1-1.4) 03/21/20 11:50 Absolute Eos (auto) 0.1 10^3/uL (0.0-0.6) 03/21/20 11:50 Absolute Basos (auto) 0.0 10^3/uL (0.0-0.2) 03/21/20 11:50 Total Counted 100 03/20/20 00:08 Seg Neutrophils % 72.0 % (42-78) 03/21/20 11:50 Seg Neuts % (Manual) 86 % (42-78) H 03/20/20 00:08 Lymphocytes % (Manual) 11 % (13-45) L 03/20/20 00:08 Monocytes % (Manual) 3 % (3-13) 03/20/20 00:08 Eosinophils % (Manual) 0 % (0-6) 03/20/20 00:08 Basophils % (Manual) 0 % (0-2) 03/20/20 00:08 Abs Neuts (Manual) 25.6 10^3/uL (1.7-8.2) H 03/20/20 00:08 Abs Lymphs (Manual) 3.3 10^3/uL (0.5-4.7) 03/20/20 00:08 Abs Monocytes (Manual) 0.9 10^3/uL (0.1-1.4) 03/20/20 00:08 Absolute Eos (Manual) 0.0 10^3/uL (0.0-0.6) 03/20/20 00:08 Abs Basophils (Manual) 0.0 10^3/uL (0.0-0.2) 03/20/20 00:08 Hypersegmented Neuts PRESENT 03/20/20 00:08 Platelet Comment ADEQUATE 03/20/20 00:08 Ovalocytes SLIGHT 03/20/20 00:08 [place] Cells SLIGHT 03/20/20 00:08 VBG pH 7.06 (7.30-7.42) L* 03/20/20 00:46 VBG pCO2 40.9 mmHg (35-63) 03/20/20 00:46 VBG HCO3 11.3 mmol/L (20-32) L 03/20/20 00:46 VBG Base Excess -18.6 mmol/L 03/20/20 00:46 Sodium 136.4 mmol/L (137-145) L 03/21/20 11:50 Potassium 4.6 mmol/L (3.6-5.0) 03/21/20 11:50 Chloride 103 mmol/L (98-107) 03/21/20 11:50 Carbon Dioxide 25 mmol/L (22-30) D 03/21/20 11:50 Anion Gap 8 (5-19) 03/21/20 11:50 BUN 15 mg/dL (7-20) 03/21/20 11:50 Creatinine 0.64 mg/dL (0.52-1.25) 03/21/20 11:50 Est GFR ( Amer) > 60 (>60) 03/21/20 11:50 Est GFR (MDRD) Non-Af > 60 (>60) 03/21/20 11:50 Glucose 164 mg/dL (75-110) H 03/21/20 11:50 POC Glucose 161 mg/dL (70-110) H 03/21/20 11:56 Lactic Acid 2.0 mmol/L (0.7-2.1) 03/20/20 07:53 Calcium 9.2 mg/dL (8.4-10.2) 03/21/20 11:50 Total Bilirubin 0.8 mg/dL (0.2-1.3) 03/20/20 00:08 Direct Bilirubin 0.3 mg/dL (0.0-0.4) 03/20/20 00:08 Neonat Total Bilirubin Not Reportable 03/20/20 00:08 Neonat Direct Bilirubin Not Reportable 03/20/20 00:08 Neonat Indirect Bili Not Reportable 03/20/20 00:08 AST 33 U/L (14-36) 03/20/20 00:08 ALT 42 U/L (<35) H 03/20/20 00:08 Alkaline Phosphatase 92 U/L (38-126) 03/20/20 00:08 Troponin I < 0.012 ng/mL 03/20/20 00:08 Total Protein 8.1 g/dL (6.3-8.2) 03/20/20 00:08 Albumin 5.0 g/dL (3.5-5.0) 03/20/20 00:08 Serum HCG, Qual NEGATIVE (NEGATIVE) 03/20/20 00:08 Urine Color STRAW 03/20/20 01:37 Urine Appearance CLEAR 03/20/20 01:37 Urine pH 5.0 (5.0-9.0) 03/20/20 01:37 Ur Specific Dexter 1.024 03/20/20 01:37 Urine Protein 30 mg/dL (NEGATIVE) H 03/20/20 01:37 Urine Glucose (UA) >=500 mg/dL (NEGATIVE) H 03/20/20 01:37 Urine Ketones 80 mg/dL (NEGATIVE) H 03/20/20 01:37 Urine Blood SMALL (NEGATIVE) H 03/20/20 01:37 Urine Nitrite NEGATIVE (NEGATIVE) 03/20/20 01:37 Urine Bilirubin NEGATIVE (NEGATIVE) 03/20/20 01:37 Urine Urobilinogen NEGATIVE mg/dL (<2.0) 03/20/20 01:37 Ur Leukocyte Esterase NEGATIVE (NEGATIVE) 03/20/20 01:37 Urine WBC (Auto) 0 /HPF 03/20/20 01:37 Urine RBC (Auto) 0 /HPF 03/20/20 01:37 U Hyaline Cast (Auto) 5 /LPF 03/20/20 01:37 Urine Bacteria (Auto) TRACE /HPF 03/20/20 01:37 Urine Mucus (Auto) RARE /LPF 03/20/20 01:37 Urine Ascorbic Acid NEGATIVE (NEGATIVE) 03/20/20 01:37 COVID-19 Source See comment 03/20/20 00:46 COVID-19 (ANTHONY) Not Detected (Not Detect) 03/20/20 00:46 Influenza A (Rapid) NEGATIVE (NEGATIVE) 03/20/20 01:37 Influenza B (Rapid) NEGATIVE (NEGATIVE) 03/20/20 01:37 03/20/20 00:08 Troponin I < 0.012 Impressions: Chest X-Ray 03/20/20 01:38 IMPRESSION: No acute cardiopulmonary abnormality copyright 2011 [employer]- All Rights Reserved Stroke Is this a Stroke Patient?: No Acute Heart Failure Is this a Heart Failure Patient?: No
[2020-03-21] MEDS ORDERED: INSULIN GLARGINE,HUM.REC.ANLOG 1,000 UNIT/10 ML VIAL SUBCUT SCH ×2 (18:00)
[2020-03-27] MEDS ORDERED: (PENDING PHARMACY ID) (Semaglutide [Ozempic] 0.25 MG/0.2 ML Pen.Injctr) PO SCH (10:00)
== END 2020-03-21 16:30 | disposition home or self-care (01) | DRG 639 ==
LOC: ER 20:44 → EH 03-20 04:47 → 3W 03-20 09:40
PROVIDERS: ADMIT Internal Medicine; ATTEND Internal Medicine
DX: E10.10 Type 1 diabetes mellitus with ketoacidosis without coma (principal); D72.829 Elevated white blood cell count, unspecified; E78.5 Hyperlipidemia, unspecified; F17.200 Nicotine dependence, unspecified, uncomplicated; J02.9 Acute pharyngitis, unspecified; R09.89 Other specified symptoms and signs involving the circulatory and respiratory systems; F32.9 Major depressive disorder, single episode, unspecified; Z11.59 Encounter for screening for other viral diseases; Z79.4 Long term (current) use of insulin; Z79.899 Other long term (current) drug therapy; Z83.42 Family history of familial hypercholesterolemia; Z88.8 Allergy status to other drugs, medicaments and biological substances
CPT/HCPCS: 36415; 71045; 80048; 80053; 81001; 82803; 82962; 83605; 84484; 84703; 85025; 87040; 87086; 87635; 87804; 93005; 93010; 96361; 96374; 99285; C9803; J1650; J1815; J2765; J7030; J7050; J7120